=== PATIENT | male | born 1980 | race Two or more races ===

== ENCOUNTER → 2022-03-11 09:25 | Outpatient (REF) | payer OTHER, SELFPAY | LOC: HO.SL 09:25 | PROVIDERS: PCP Internal Medicine; Visit Provider Internal Medicine | DX: R40.0 Somnolence (principal); R06.81 Apnea, not elsewhere classified; E66.9 Obesity, unspecified | CPT/HCPCS: 95806 ==

== ENCOUNTER 2022-07-02 09:01 | Outpatient (REF) | payer OTHER, SELFPAY ==
[2022-07-02 09:10] LABS: MANUAL DIFF FLAG NO
[2022-07-02 09:33] LABS: Basophils Percent Auto 0.3 % (0-2); Eosinophils Absolute Auto 0.2 X10*3/uL (0.0-0.4); Eosinophils Percent Auto 2.3 % (0-4); Hemoglobin 14.4 g/dl (14.0-18.0); Imm Gran Abs Auto 0.03 X10*3/uL (0.00-0.03); Imm Gran Pct Auto 0.4 % (0.0-0.4); Lymphocytes Absolute Auto 2.1 X10*3/uL (1.2-4.9); Lymphocytes Percent Auto 28.8 % (20-40); Mean Corpuscular HGB Conc 32.7 g/dl (31.0-36.0); Mean Corpuscular Hemoglobin 26.4 pg (27.0-33.0); Mean Corpuscular Volume 80.7 fL (80.0-98.0); Mean Platelet Volume 8.6 fL (9.4-12.4); Monocytes Absolute Auto 0.3 X10*3/uL (0.1-1.2); Monocytes Percent Auto 3.6 % (2-11); Neutrophils Absolute Auto 4.7 x10*3/uL (2.0-8.3); Neutrophils Percent Auto 64.6 % (45-73); Platelet Count 317 X10*3/uL (160-400); Red Blood Count 5.45 X10*6/uL (4.60-5.80); Red Cell Distribution Width 14.6 % (11.0-16.0); White Blood Count 7.3 X10*3/uL (4.8-10.8)
[2022-07-02 09:56] LABS: Alanine Aminotransferase 35 U/L (0-40); Albumin Level 4.1 g/dL (3.5-5.0); Alkaline Phosphatase 91 U/L (39-117); Anion Gap 12 (12-20); Aspartate Amino Transferase 30 U/L (5-37); Bilirubin Total 0.4 mg/dL (0.0-1.0); Blood Urea Nitrogen 15 mg/dL (9-16); Carbon Dioxide 31 mmol/L (22-29); Chloride 103 mmol/L (96-108); Cholesterol 205 mg/dL; Estimated Glomerular Filt Rate > 60; Glucose Fasting 111 mg/dL (60-99); HDL Cholesterol 32 mg/dL; LDL Cholesterol Calculated 135 mg/dl; Sodium 142 mmol/L (135-145); Total Protein 7.4 g/dL (6.5-8.0); Triglycerides 190 mg/dL
[2022-07-02 10:20] LABS: Thyroid Stimulating Hormone 2.27 uIU/mL (0.32-4.0); Vitamin D 25-OH Total 25.8 ng/mL (>30)
== END 2022-07-02 09:02 | disposition home or self-care (01) ==
LOC: HO.LAB 09:01
PROVIDERS: PCP Internal Medicine; Visit Provider Internal Medicine
DX: E66.9 Obesity, unspecified (principal); E55.9 Vitamin D deficiency, unspecified; I10 Essential (primary) hypertension
CPT/HCPCS: 36415; 80053; 80061; 82306; 84443; 85025

== ENCOUNTER 2022-09-23 17:36 | Emergency (ER) | payer OTHER, SELFPAY ==
--- NOTE | ~2022-09-23 | XR_ITS ---
EXAMINATION: XR CHEST CLINICAL INFORMATION: Cough COMPARISON: None TECHNIQUE: 2 views of the chest were obtained. FINDINGS: The lungs are clear. No airspace consolidation, pleural effusion, or pneumothorax. The cardiomediastinal silhouette is within normal limits. No acute osseous injury. XR/XR chest 2V IMPRESSION: No acute pulmonary process.
[2022-09-23 19:11] VITALS: BP 173/80; PULSE 100; RESP 16; TEMP 37.1; O2SAT 98; BMI 35.4
--- NOTE | 2022-09-23 19:13 | ED.URI ---
HPI - URI/Sore Throat General Chief Complaint: Upper Respiratory Symptoms <Aamir Blair MD - Last Filed: 09/23/22 19:14> Stated Complaint: Cough, chest pressure, sore throat <Aamir Blair MD - Last Filed: 09/23/22 19:14> Time Seen by Provider: 09/23/22 19:27 <Aamir Blair MD - Last Filed: 09/23/22 19:14> Source: patient <ANSON Ugarte - Last Filed: 09/23/22 21:11> Mode of arrival: ambulatory <ANSON Ugarte - Last Filed: 09/23/22 21:11> Limitations: no limitations <ANSON Ugarte Last Filed: 09/23/22 21:11> History of Present Illness HPI Narrative: 42 yold male with pmh of childhood asthma, HTN, obstructive sleep apnea presents to the ED for dry cough for the past 3 weeks. patient also states is sore throat. patient denies any shortness of breath, leg swelling, calf pain, pressure chest pain, weakness, dizziness, or coughing up blood. <ANSON Ugarte - Last Filed: 09/23/22 21:11> MD elicited complaint: cough and sore throat <ANSON Ugarte Last Filed: 09/23/22 21:11> Related Data Home Medications: Home Medications Medication Instructions Recorded Confirmed multivitamin 1 tab PO DAILY 01/28/22 07/02/22 Previous Rx's Medication Instructions Recorded CPAP (CPAP Machine/Device) #1 ea 04/07/22 enalapril maleate 5 mg tablet 5 mg PO BID 90 days #180 tabs 06/17/22 cholecalciferol (vitamin D3) 50 50 mcg PO DAILY 90 days #90 caps 07/02/22 mcg (2,000 unit) capsule albuterol sulfate 90 mcg/actuation 2 puff inhalation Q4-6H PRN 09/23/22 aerosol inhaler shortness of breath or wheezing #8.5 grams benzonatate 100 mg capsule 100 mg PO TID PRN cough 5 days #15 09/23/22 caps <Aamir Blair MD - Last Filed: 09/23/22 19:14> Allergies/Adverse Reactions: Allergies Allergy/AdvReac Type Severity Reaction Status Date / Time No Known Drug Allergies Allergy Unknown Unknown Verified 09/23/22 19:13 <Aamir Blair MD - Last Filed: 09/23/22 19:14> Review of Systems Review of Systems: Cough and sore throat <ANSON Ugarte - Last Filed: 09/23/22 21:11> Yes all other systems are reviewed and are negative <ANSON Ugarte - Last Filed: 09/23/22 21:11> [facility] Past Medical History Medical History: Medical History (Updated 09/23/22 @ 20:53 by ANSON Ugarte) Benign essential hypertension Impaired fasting glucose Obesity (BMI 30-39.9) Pure hypercholesterolemia Vitamin D deficiency <Aamir Blair MD - Last Filed: 09/23/22 19:14> Surgical History: Surgical History No pertinent past surgical history <Aamir Blair MD - Last Filed: 09/23/22 19:14> Family History Family History: Family History Mother High blood pressure Father No problems noted. 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 Cognitive needs: No Hearing needs: No Vision needs: Yes <Aamir Blair MD - Last Filed: 09/23/22 19:14> Physical Exam Vital Signs: Vital Signs: Last Vital Signs Temp 98.8 F 09/23/22 19:11 Pulse 100 09/23/22 19:11 Resp 16 09/23/22 19:11 BP 173/80 H 09/23/22 19:11 Pulse Ox 98 09/23/22 19:11 O2 Del Method 09/23/22 19:11 BMI result Body Mass Index 35.4 <Aamir Blair MD - Last Filed: 09/23/22 19:14> Vital Signs: Last Vital Signs Temp 98.8 F 09/23/22 19:11 Pulse 100 09/23/22 19:11 Resp 16 09/23/22 19:11 BP 173/80 H 09/23/22 19:11 Pulse Ox 98 09/23/22 19:11 O2 Del Method 09/23/22 19:11 BMI result Body Mass Index 35.4 <ANSON Ugarte - Last Filed: 09/23/22 21:11> Const: General: cooperative, healthy appearing, comfortable, no acute distress, well developed, alert, awake and Physically active <ANSON Ugarte Last Filed: 09/23/22 21:11> Orientation/consciousness: oriented to person, oriented to place, oriented to time and patient oriented x3 <ANSON Ugarte - Last Filed: 09/23/22 21:11> HEENT: Head: Yes normal to inspection, Yes No palpable skull fracture present, Yes normocephalic, Yes atraumatic and No abrasion <ANSON Ugarte Last Filed: 09/23/22 21:11> Eyes: General: appearance normal, both eyes and all related structures <ANSON Ugarte Last Filed: 09/23/22 21:11> Neck: Neck: Yes normal visual inspection, Yes full ROM, Yes no lymphadenopathy, Yes no meningeal signs, Yes trachea midline, Yes supple, No anterior neck swelling and No tender <ANSON Ugarte Last Filed: 09/23/22 21:11> Chest: Chest palpation & inspection: normal inspection of the chest and normal palpation of entire chest wall <ANSON Ugarte Last Filed: 09/23/22 21:11> Resp: Effort & Inspection: normal respiratory effort and able to speak in complete sentences <ANSON Ugarte Last Filed: 09/23/22 21:11> Auscultation: clear to auscultation bilaterally <ANSON Ugarte Last Filed: 09/23/22 21:11> Cardio: Jugular venous distension: no JVD <ANSON Ugarte Last Filed: 09/23/22 21:11> Heart sounds: S1 normal heart sound present and S2 normal heart sound present <ANSON Ugarte Last Filed: 09/23/22 21:11> GI: Inspection: Yes normal to inspection and No abdominal wall ecchymosis <ANSON Ugarte Last Filed: 09/23/22 21:11> Palpation (GI): Soft to palpation, not firm, nontender, no guarding and not rigid <ANSON Ugarte - Last Filed: 09/23/22 21:11> : General: No CVA tenderness and Yes no CVA tenderness <ANSON Ugarte Last Filed: 09/23/22 21:11> Back/Spine/Pelvis: Back: no CVA tenderness, No CVA tenderness and No back tenderness <ANSON Ugarte - Last Filed: 09/23/22 21:11> Skin: General skin exam: no rashes or lesions noted and elasticity normal <ANSON Ugarte Last Filed: 09/23/22 21:11> Neuro: General: oriented to person, oriented to place, oriented to time, patient oriented x3, gait normal, tone normal, no meningeal signs and CN's II-XI intact bilaterally <ANSON Ugarte Last Filed: 09/23/22 21:11> Extrem: General: Yes normal to inspection and Yes full ROM <ANSON Ugarte Last Filed: 09/23/22 21:11> Psych: Appearance: grossly normal, well kempt and not disheveled <ANSON Ugarte Last Filed: 09/23/22 21:11> Course Course Course Narrative: CHest xray and SARS and strep was ordered in triage. patient is well-appearing <ANSON Ugarte Last Filed: 09/23/22 21:11> Reevaluation(s) Reevaluation #1: 42-year-old male came in for evaluation of sore throat, coughing for the past 2 weeks on and off nonproductive cough, also has been sick with similar symptoms <Aamir Blair MD - Last Filed: 09/23/22 19:14> Time: 19:13 <Aamir Blair MD - Last Filed: 09/23/22 19:14> Reevaluation #2: Strep, SARS, and chest xray normal <ANSON Ugarte - Last Filed: 09/23/22 21:11> Time: 20:51 <ANSON Ugarte - Last Filed: 09/23/22 21:11> MDM - URI/Sore Throat MDM Narrative Medical decision making narrative: Bronchitis <ANSON Ugarte - Last Filed: 09/23/22 21:11> Lab Data Labs: Lab Results 09/23/22 09/23/22 Range/Units 19:15 19:15 Influenza Type A (PCR) NEGATIVE (Negative) Influenza Type B (PCR) NEGATIVE (Negative) RSV RNA Qual (PCR) NEGATIVE (Negative) SARS-CoV-2 RNA (RT-PCR) NEGATIVE (Negative) S. pyogenes GrpA [place] Negative (Negative) <Aamir Blair MD - Last Filed: 09/23/22 19:14> Lab Results 09/23/22 09/23/22 Range/Units 19:15 19:15 Influenza Type A (PCR) NEGATIVE (Negative) Influenza Type B (PCR) NEGATIVE (Negative) RSV RNA Qual (PCR) NEGATIVE (Negative) SARS-CoV-2 RNA (RT-PCR) NEGATIVE (Negative) S. pyogenes GrpA [place] Negative (Negative) <ANSON Ugarte - Last Filed: 09/23/22 21:11> Discharge Plan Discharge Clinical Impression: Bronchitis <Aamir Blair MD - Last Filed: 09/23/22 19:14> Patient Disposition: Home, Self-Care <Aamir Blair MD - Last Filed: 09/23/22 19:14> Instructions: Acute Bronchitis (ED) <Aamir Blair MD - Last Filed: 09/23/22 19:14> Additional Instructions: Return to the ED immediately for any chest pain, shortness of breath, leg swelling, calf pain, coughing up blood, weakness, dizziness, or any other concerning symptoms. Please follow-up with your primary care provider. The COVID, SARS, strep, and chest x-ray came back normal. <Aamir Blair MD - Last Filed: 09/23/22 19:14> Prescriptions: New albuterol sulfate 90 mcg/actuation HFA aerosol inhaler 2 puff inhalation Q4-6H PRN (Reason: shortness of breath or wheezing) Qty: 8.5 0RF benzonatate 100 mg capsule 100 mg PO TID PRN (Reason: cough) 5 Days Qty: 15 0RF No Action (DME) CPAP Machine/Device Device See Rx Instructions .Route Qty: 1 0RF Rx Instructions: As directed-Pressure settings 6-16CM multivitamin Tablet 1 tab PO DAILY enalapril maleate 5 mg tablet 5 mg PO BID 90 Days Qty: 180 3RF cholecalciferol (vitamin D3) 50 mcg (2,000 unit) capsule 50 mcg PO DAILY 90 Days Qty: 90 3RF <Aamir Blair MD - Last Filed: 09/23/22 19:14> Referrals: Stephane Pretty MD [Primary Care Provider] - (Bronchitis) <Aamir Blair MD - Last Filed: 09/23/22 19:14> Stand Alone Forms: Work/School Release <Aamir Blair MD - Last Filed: 09/23/22 19:14> Interventions: ED Discharge Assessment Last Done: 09/23/22 20:59 <Aamir Blair MD - Last Filed: 09/23/22 19:14> Discharge Date/Time: 09/23/22 21:00 <Aamir Blair MD - Last Filed: 09/23/22 19:14> Print Language: [place] <Aamir Blair MD - Last Filed: 09/23/22 19:14>
[2022-09-23 19:40] LABS: Strep A Nucleic Acid Negative (Negative)
[2022-09-23 19:59] LABS: Influenza A PCR NEGATIVE (Negative); Influenza B PCR NEGATIVE (Negative); Resp Syncy Virus RNA Qual PCR NEGATIVE (Negative); SARS COV2 PCR INHOUSE NEGATIVE (Negative)
== END 2022-09-23 21:00 | disposition home or self-care (01) ==
PROVIDERS: Emergency Medicine; Emergency Provider Internal Medicine; PCP Internal Medicine
DX: J40 Bronchitis, not specified as acute or chronic (principal); Z20.822 Contact with and (suspected) exposure to COVID-19; J02.9 Acute pharyngitis, unspecified; I10 Essential (primary) hypertension; E78.00 Pure hypercholesterolemia, unspecified; Z79.899 Other long term (current) drug therapy
CPT/HCPCS: 0241U; 71046; 87651; 99282; 99283

== ENCOUNTER 2022-11-19 09:27 | Outpatient (REF) | payer OTHER, SELFPAY ==
[2022-11-19 09:43] LABS: MANUAL DIFF FLAG NO
[2022-11-19 10:28] LABS: Appearance Urine Clear; Color Urine Yellow; Glucose Urine UA Negative (Negative); Leukocyte Esterase Urine Negative (Negative); Nitrite Urine Negative (Negative); PH 6.5 (5.0-9.0); UMIC TRIGGER UACC YES; Urine Blood Small (1+) (Negative); Urine Ketones Negative (Negative); Urine Protein Negative (Neg-Trace)
[2022-11-19 10:39] LABS: Bacteria Urine None Seen (None Seen); Hyaline Casts Urine 0-2 /LPF (0-2); Squamous Epithelial Cell Urine 0-2 /HPF (0-2); WBC Urine 0-5 /HPF (0-5)
[2022-11-19 10:57] LABS: Estimated Average Glucose 123 mg/dL; Hemoglobin A1c % 5.9 %
[2022-11-19 11:56] LABS: Alanine Aminotransferase 31 U/L (0-40); Alkaline Phosphatase 94 U/L (39-117); Anion Gap 10 (12-20); Aspartate Amino Transferase 26 U/L (5-37); Bilirubin Total 0.4 mg/dL (0.0-1.0); Blood Urea Nitrogen 14 mg/dL (9-16); Carbon Dioxide 33 mmol/L (22-29); Chloride 103 mmol/L (96-108); Cholesterol 212 mg/dL; Estimated Glomerular Filt Rate > 60; Glucose Fasting 103 mg/dL (60-99); HDL Cholesterol 31 mg/dL; LDL Cholesterol Calculated 147 mg/dl; Potassium 3.8 mmol/L (3.3-5.1); Sodium 142 mmol/L (135-145); TSH reflex Free T4 1.07 uIU/mL (0.32-4.0); Triglycerides 173 mg/dL; Vitamin D 25-OH Total 33.4 ng/mL (>30)
[2022-11-19 12:10] LABS: Basophils Percent Auto 0.3 % (0-2); Eosinophils Absolute Auto 0.2 X10*3/uL (0.0-0.4); Eosinophils Percent Auto 2.4 % (0-4); Hematocrit 42.9 % (42.0-52.0); Hemoglobin 13.8 g/dl (14.0-18.0); Imm Gran Abs Auto 0.02 X10*3/uL (0.00-0.03); Imm Gran Pct Auto 0.3 % (0.0-0.4); Lymphocytes Absolute Auto 1.5 X10*3/uL (1.2-4.9); Mean Corpuscular HGB Conc 32.2 g/dl (31.0-36.0); Mean Corpuscular Hemoglobin 26.2 pg (27.0-33.0); Mean Corpuscular Volume 81.4 fL (80.0-98.0); Mean Platelet Volume 9.3 fL (9.4-12.4); Monocytes Absolute Auto 0.2 X10*3/uL (0.1-1.2); Monocytes Percent Auto 3.4 % (2-11); Neutrophils Absolute Auto 4.8 x10*3/uL (2.0-8.3); Neutrophils Percent Auto 71.6 % (45-73); Platelet Count 315 X10*3/uL (160-400); Red Blood Count 5.27 X10*6/uL (4.60-5.80); White Blood Count 6.7 X10*3/uL (4.8-10.8)
== END 2022-11-19 09:28 | disposition home or self-care (01) ==
LOC: HO.LAB 09:27
PROVIDERS: PCP Internal Medicine; Visit Provider Internal Medicine
DX: E78.00 Pure hypercholesterolemia, unspecified (principal); R73.01 Impaired fasting glucose; I10 Essential (primary) hypertension; E55.9 Vitamin D deficiency, unspecified
CPT/HCPCS: 36415; 80053; 80061; 81001; 82306; 83036; 84443; 85025

== ENCOUNTER 2023-06-19 07:08 | Outpatient (REF) | payer OTHER, SELFPAY ==
[2023-06-19 07:20] LABS: MANUAL DIFF FLAG NO
[2023-06-19 07:36] LABS: Basophils Percent Auto 0.1 % (0-2); Eosinophils Absolute Auto 0.2 X10*3/uL (0.0-0.4); Eosinophils Percent Auto 2.7 % (0-4); Imm Gran Abs Auto 0.02 X10*3/uL (0.00-0.03); Imm Gran Pct Auto 0.3 % (0.0-0.4); Lymphocytes Absolute Auto 1.9 X10*3/uL (1.2-4.9); Lymphocytes Percent Auto 26.9 % (20-40); Mean Corpuscular HGB Conc 31.8 g/dl (31.0-36.0); Mean Corpuscular Hemoglobin 25.6 pg (27.0-33.0); Mean Corpuscular Volume 80.6 fL (80.0-98.0); Mean Platelet Volume 8.8 fL (9.4-12.4); Monocytes Absolute Auto 0.3 X10*3/uL (0.1-1.2); Monocytes Percent Auto 4.2 % (2-11); Neutrophils Absolute Auto 4.7 x10*3/uL (2.0-8.3); Neutrophils Percent Auto 65.8 % (45-73); Platelet Count 281 X10*3/uL (160-400); Red Blood Count 5.46 X10*6/uL (4.60-5.80); Red Cell Distribution Width 14.9 % (11.0-16.0); White Blood Count 7.1 X10*3/uL (4.8-10.8)
[2023-06-19 07:43] LABS: Estimated Average Glucose 111 mg/dL; Hemoglobin A1c % 5.5 %
[2023-06-19 08:00] LABS: Alanine Aminotransferase 31 U/L (0-40); Alkaline Phosphatase 82 U/L (39-117); Anion Gap 10 (12-20); Aspartate Amino Transferase 20 U/L (5-37); Bilirubin Total 0.4 mg/dL (0.0-1.0); Blood Urea Nitrogen 17 mg/dL (9-16); Calcium 9.3 mg/dL (8.4-10.2); Carbon Dioxide 32 mmol/L (22-29); Chloride 106 mmol/L (96-108); Cholesterol 187 mg/dL; Estimated Glomerular Filt Rate > 60; Glucose Fasting 102 mg/dL (60-99); HDL Cholesterol 32 mg/dL; LDL Cholesterol Calculated 127 mg/dl; Potassium 3.7 mmol/L (3.3-5.1); Sodium 144 mmol/L (135-145); Total Protein 7.3 g/dL (6.5-8.0); Triglycerides 142 mg/dL
[2023-06-19 08:18] LABS: TSH reflex Free T4 3.46 uIU/mL (0.32-4.0); Vitamin D 25-OH Total 43.2 ng/mL (>30)
== END 2023-06-19 07:09 | disposition home or self-care (01) ==
LOC: HO.LAB 07:08
PROVIDERS: PCP Internal Medicine; Visit Provider Internal Medicine
DX: E55.9 Vitamin D deficiency, unspecified (principal); I10 Essential (primary) hypertension; E11.9 Type 2 diabetes mellitus without complications; E78.00 Pure hypercholesterolemia, unspecified
CPT/HCPCS: 36415; 80053; 80061; 82306; 83036; 84443; 85025

== ENCOUNTER 2023-06-21 07:15 | Outpatient (REF) | payer OTHER, SELFPAY ==
[2023-06-21 12:59] LABS: Appearance Urine Clear; Color Urine Yellow; Glucose Urine UA Negative (Negative); Leukocyte Esterase Urine Negative (Negative); Nitrite Urine Negative (Negative); PH 6.5 (5.0-9.0); Specific Gravity - Urine 1.015 (1.005-1.025); Urine Blood Negative (Negative); Urine Ketones Negative (Negative); Urine Protein Negative (Neg-Trace)
== END 2023-06-21 07:16 | disposition home or self-care (01) ==
LOC: HO.LAB 07:15
PROVIDERS: PCP Internal Medicine; Visit Provider Internal Medicine
DX: R30.0 Dysuria (principal)
CPT/HCPCS: 81003

== ENCOUNTER 2023-06-21 16:42 | Outpatient (AMB) | payer OTHER, SELFPAY ==
[2023-06-21 16:44] VITALS: BP 128/82; PULSE 78; O2SAT 97; BMI 34.0
--- NOTE | 2023-06-21 16:44 | A.OFFPC_ITS ---
Vital Signs 06/21/23 16:44 Height 5 ft 9 in Weight 230 lb BMI 34.0 BP 128/82 Blood Pressure Location Lt brachial Position Sitting Pulse 78 Pulse Source Pulse Oximeter Pulse Oximetry (%) 97 Oxygen Delivery Method Room Air Intake Visit Reasons: 4m F/U HTN, hyperlipidemia, IFG, CLOVIS [employer] Required: No Accompanied by: Self / Same As Patient Allergies No Known Drug Allergies Allergy (Unknown, Verified 06/21/23 17:35) Unknown Medication List - Last Reconciled 06/21/23 by Stephane Pretty MD cholecalciferol (vitamin D3) 50 mcg PO DAILY 90 days CPAP (CPAP Machine/Device) As directed-Pressure settings 6-16CM enalapril maleate 5 mg PO BID 90 days multivitamin 1 tab PO DAILY Tobacco use date assessed: 06/21/23 Dental Screening Dental Screen Date: 06/21/23 Did you have a dental visit in the last 12 months?: No Did you have a dental problem in the last 6 months where you did not have access to dental care?: No Was dental information given to patient?: No HPI 4m F/U HTN, hyperlipidemia, IFG, CLOVIS HPI Details Patient comes in today for his follow up visit States that he feels okay He denies any headaches or dizziness Denies any chest pains, no SOB He reports that he is still experiencing on and off brief spells of palpitations/sensation of his heart racing States that these would occur about 1 to 2 times a week and each episode would last for about 15 minutes or so Notes that these occur irregardless of activity or exertion and at any time of the day States that other that the sensation in his chest, he denies any other associated symptoms - has no headaches, dizziness, SOB or chest pains when these episodes occur No nausea/vomiting, no abdominal pain No change in bowel habits noted Adds that he finally got his CPAP device a couple of months ago and has been using it daily when sleeping at night since States that he has noticed some improvement in his sleep and a reduction in his daytime fatigue and somnolence but he is not sure at this time if his settings or requirements have changed or not Is not seeing any specialist at this time for his CLOVIS Had his follow up labs done last week - to discuss his results [facility] Medical History Benign essential hypertension Impaired fasting glucose Obesity (BMI 30-39.9) Pure hypercholesterolemia Vitamin D deficiency Surgical History No pertinent past surgical history Family History Mother High blood pressure Father No problems noted. 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 1. Little interest or pleasure in doing things: not at all 2. Feeling down, depressed, or hopeless: not at all 3. Trouble falling or staying asleep, or sleeping too much: not at all 4. Feeling tired or having little energy: not at all 5. Poor appetite or overeating: not at all 6. Feeling bad about yourself - or that you are a failure or have let yourself or your family down: not at all 7. Trouble concentrating on things, such as reading the newspaper or watching television: not at all 8. Moving or speaking so slowly that other people could have noticed. Or the opposite - being so fidgety or restless that you have been moving around a lot more than usual: not at all 9. Thoughts that you would be better off or of hurting yourself in some way: not at all Total score: 0 Depression Screening Interpretation: Negative 01017 - PHQ-9 Billing: Yes Source: Developed by Drs. Matthieu Parnell, Neris Vance, Kenn Hopper and colleagues, with an educational whit from [employer]. Thrive Questionnaire Date Thrive assessed: 06/21/23 I am a: Patient What is your living situation today?: I have a steady place to live Within the past 12 months, did the food you bought not last and you didn't have the money to get more?: Never true Within the past 12 months, did you worry whether your food would run out before you got money to buy more?: Never true Do you have trouble paying for medicines?: No Do you have trouble getting transportation to medical appointments?: No Do you have trouble paying your heating and electricity bill?: No Do you have trouble taking care of your child, family member or friend?: No Do you have trouble with day-to-day activities such as bathing, preparing meals, shopping, managing finances, etc.?: No Are you currently unemployed and looking for a job?: No Are you interested in more education?: No Please select the resources that you would like help with: None Currently or been in a relationship where the following occur: no concerns reported AUDIT C Alcohol Use Questionnaire (AUDIT-C) 1. How often do you have a drink containing alcohol?: Monthly or less 2. How many drinks containing alcohol do you have on a typical day when you are drinking?: 1 or 2 3. How often do you have six or more drinks on one occasion?: Never Total Score: 1 Score Reviewed/Action Taken: Yes STEPH-7 AMB Questionnaire STEPH-7 Date STEPH - 7 assessed: 06/21/23 Feeling nervous, anxious, or on edge: 1 = Several days Not being able to stop or control worryin = Several days Worrying too much about different things: 1 = Several days Trouble relaxin = Several days Being so restless that it is hard to sit still: 1 = Several days Becoming easily annoyed or irritable: 1 = Several days Feeling afraid as if something awful might happen: 1 = Several days Total STEPH-7 score (0-4 normal; 5-9 mild; 10-14 moderate; 15-21 severe): 7 Source: Developed by Drs. Matthieu Parnell, Neris Vance, Kenn Hopper and colleagues, with an educational whit from [employer]. STEPH-7 Assessment Billing STEPH-7 Assessment Tool: STEPH-7 Assessment 04050 Review of Systems Const Denies chills, Denies fatigue, Denies fever(s) and Denies headache(s) ENT Denies dysphagia, Denies dizziness, Denies otalgia, Denies headache(s), Denies neck pain, Denies odynophagia and Denies sore throat Card Denies chest pain, Denies irregular heart rhythm, Reports palpitations (on and off - see HPI) and Denies dyspnea Resp Denies cough and Denies dyspnea GI Denies abdominal pain, Denies constipation, Denies dysphagia, Denies heartburn, Denies diarrhea, Denies nausea, Denies odynophagia and Denies vomiting Denies dysuria, Denies nocturia and Denies urinary frequency Musc Denies neck pain Neuro Denies dizziness and Denies headache(s) Endo Denies fatigue and Reports palpitations (on and off - see HPI) Physical exam (Primary Care) Vital Signs: Last Vital Signs Pulse 78 06/21/23 16:44 BP 128/82 06/21/23 16:44 Pulse Ox 97 06/21/23 16:44 Oxygen Delivery Method Room Air 06/21/23 16:44 BMI result Body Mass Index 34.0 Tobacco/Smoking Status: Tobacco use Status Tobacco use date assessed 06/21/23 06/21/23 16:49 Patient Tobacco Use Status Never used Tobacco 06/21/23 16:49 e-Cigarette/Vaping Use Never Used 06/21/23 16:49 PHQ-9: PHQ-9 Score PHQ-9: Total score 0 06/21/23 17:39 Depression Screening Interpretation: Negative Thrive Assessment: Date of Thrive Assessment Date Thrive assessed 06/21/23 06/21/23 16:49 Currently or been in a relationship where the following occur: no concerns repor maddi Const General: no acute distress and alert HENMT Ears: TM's normal bilaterally and EAC's normal Throat: Yes posterior oropharynx normal and Yes tonsils normal (no TP congestion) Neck Neck: Yes no lymphadenopathy and Yes supple Resp Auscultation: clear to auscultation bilaterally, no rales and no wheezes Cardio Rate: regular rate Rhythm: regular rhythm Heart sounds: no murmurs GI Palpation (GI): Soft to palpation and nontender Auscultation: normal bowel sounds Skin Rashes: no rashes Extrem General: Yes no clubbing, cyanosis or edema Results Reviewed Results Reviewed: Laboratory Tests 06/19/23 06/19/23 06/19/23 07:18 07:18 07:18 WBC 7.1 Hgb 14.0 Hct 44.0 Plt Count 281 Sodium 144 Potassium 3.7 Creatinine 0.89 Estimated GFR > 60 Fasting Glucose 102 H Hemoglobin A1c % 5.5 Calcium 9.3 AST 20 ALT 31 Triglycerides 142 Cholesterol 187 LDL Cholesterol, Calc 127 HDL Cholesterol 32 25-OH Vitamin D Total 43.2 TSH 3.46 Ur Specific [place] Urine Protein Urine Glucose (UA) Urine Blood 06/21/23 07:48 WBC Hgb Hct Plt Count Sodium Potassium Creatinine Estimated GFR Fasting Glucose Hemoglobin A1c % Calcium AST ALT Triglycerides Cholesterol LDL Cholesterol, Calc HDL Cholesterol 25-OH Vitamin D Total TSH Ur Specific [place] 1.015 Urine Protein Negative Urine Glucose (UA) Negative Urine Blood Negative Assessment and Plan Assessment & Plan (1) Benign essential hypertension: Code(s): I10 - Essential (primary) hypertension Plan: Reinforced low sodium diet - goal is systolic BP of 120 mm or less Patient's blood pressure appears to be much better today Continue Enalapril 5 mg BID (2) Pure hypercholesterolemia: Code(s): E78.00 - Pure hypercholesterolemia, unspecified Plan: Results of his labs done last week reviewed and discussed with patient - advised that his cholesterol levels have now improved slightly from previous Reinforced low cholesterol diet; patient would like to continue working on his diet for now and hold off on starting cholesterol Rx Will recheck his labs and fasting lipids in 4 months for follow up (3) Palpitations: Code(s): R00.2 - Palpitations Plan: Patient was sent for an EKG previously for further evaluation but he was not able to get it done; will reorder EKG again As he continues to experience recurrent symptoms of palpitations, will send him as well for a 7-day Holter monitor and echocardiogram for further evaluation (4) Vitamin D deficiency: Code(s): E55.9 - Vitamin D deficiency, unspecified Plan: Continue Vitamin D3 2000 units QD (5) Impaired fasting glucose: Code(s): R73.01 - Impaired fasting glucose Plan: HgbA1c has improved to 5.5% on his labs done last week; was at 5.9% a few months ago Reinforced low calorie diet/exercise as tolerated (6) CLOVIS (obstructive sleep apnea): Code(s): G47.33 - Obstructive sleep apnea (adult) (pediatric) Plan: Home sleep study done last year revealed (+)significant sleep apnea He received his CPAP device and started using it regularly a couple of months ago - relates (+) improvement in his fatigue and daytime somnolence Is currently not seeing or following up with Sleep Medicine - will refer him to Sleep Medicine for regular follow up and continuing management (7) Obesity (BMI 30-39.9): Code(s): E66.9 - Obesity, unspecified Plan: Reinforced diet/exercise as tolerated/lose weight - has been able to lose about 10 pounds since his last visit Plan Follow up in 4 months Orders: Orders CA echo transthoracic complete Today R00.2 - Palpitations ECG 7 day holter monitor Today R00.2 - Palpitations ECG 12 lead EKG Today R00.2 - Palpitations Comprehensive [place]. Panel Fast 4 Months E78.00 - Pure hypercholesterolemia, unspecified Lipid Panel 4 Months E78.00 - Pure hypercholesterolemia, unspecified Referrals Sleep Medicine Referral G47.33 - Obstructive sleep apnea (adult) (pediatric) Coding Level of Care Code Est Pt Level 4 (62277) Diagnoses Benign essential hypertension I10 Pure hypercholesterolemia E78.00 Palpitations R00.2 Vitamin D deficiency E55.9 Impaired fasting glucose R73.01 CLOVIS (obstructive sleep apnea) G47.33 Obesity (BMI 30-39.9) E66.9 Additional Codes STEPH-7 Assessment Billing - STEPH-7 Assessment Tool: STEPH-7 Assessment 52553 ([id number])
== END 2023-06-21 17:42 | disposition home or self-care (01) ==
PROVIDERS: PCP Internal Medicine; Visit Provider Internal Medicine
DX: I10 Essential (primary) hypertension (principal); E55.9 Vitamin D deficiency, unspecified; Z68.34 Body mass index [BMI] 34.0-34.9, adult; E66.9 Obesity, unspecified; E78.00 Pure hypercholesterolemia, unspecified; R00.2 Palpitations; R73.01 Impaired fasting glucose; G47.33 Obstructive sleep apnea (adult) (pediatric)
CPT/HCPCS: 99214

== ENCOUNTER → 2023-08-31 07:56 | Outpatient (REF) | payer OTHER, SELFPAY ==
--- NOTE | 2023-08-31 08:00 | ECG_ITS ---
Test Reason : palpitations Blood Pressure : / mmHG Vent. Rate : 064 BPM Atrial Rate : 064 BPM P-R Int : 160 ms QRS Dur : 090 ms QT Int : 400 ms P-R-T Axes : 067 -01 016 degrees QTc Int : 412 ms Normal sinus rhythm Normal ECG No previous ECGs available Referred By: Stephane Pretty Electronically Signed By:MAURI BRAVO MD
--- NOTE | 2023-08-31 08:00 | HM_ITS ---
* Total monitoring time 7 days. * Underlying rhythm is sinus. Average ventricular rate 68/Min. Range 44 to 132/Min. * Rare supraventricular and ventricular ectopy. Minimal burden. * No significant pauses or AV blocks. * No patient markers or events in diary. MTDD
--- NOTE | 2023-08-31 08:00 | CA_ITS ---
Transthoracic Echocardiogram Patient (Last, First, Middle): Jesse Galan J Gender: Male Date of : 1980 Age: 43 Procedure Date: 08/31/2023 Procedure Type: Transthoracic Echocardiogram Location: OP Height: 175.26 cm Weight: 104.33 kg BSA: 2.19 m2 Heart Rate: 60 bpm BP: 128 / 82 mmHg Forensic Anthropologist: NIRMAL Referring MD: Stephane Pretty MD Nail Making Machine Tender: Winston Díaz MD Symptoms: R00.2 - Palpitations Study Quality: Adequate ECG Rhythm: Sinus Conclusions: - Normal study Findings Left Ventricle Normal left ventricular size, thickness, and systolic function. The visually estimated ejection fraction is between 60-65%. Spectral Doppler is indicative of a normal filling pattern. Peak GLS is -19.7%, within normal limits Right Ventricle Normal right ventricular cavity size and systolic function. Atria Both atria are normal in size. Interatrial shunt cannot be excluded. Aortic Valve Normal aortic valve structure and function. There is no aortic valve stenosis. There is no aortic valve regurgitation. Mitral Valve Normal mitral valve structure and function. There is trace mitral valve regurgitation. There is no mitral valve stenosis. Pulmonic Valve The pulmonic valve is likely normal. Tricuspid Valve Normal tricuspid valve structure. There is trace tricuspid valve regurgitation. The right ventricular systolic pressure is normal. The right ventricular systolic pressure is 26 mmHg. Normal right atrial pressure. There is no evidence of pulmonary hypertension. Great Vessels All visible segments of the aorta are normal in size. The pulmonary artery was not well visualized. Venous The inferior vena cava is normal in size and collapses greater than 50% with inspiration. Pericardium/Pleural There is no evidence of pericardial effusion. Prior Study Comparison No prior study available for comparison. Measurements 2D Linear Measurements IVSd: 1.00 0.6-0.9/0.6-1.0 cm LVIDd: 4.30 3.9-5.3/4.2-5.9 cm LVIDd Index: 1.96 2.4-3.2/2.2-3.1 cm/m2 LVIDs: 2.60 2.0-3.6 cm LVPWd: 0.80 0.7-1.1 cm LA Diam: 4.00 2.7-3.8/3.0-4.0 cm LAIDs Index: 1.83 1.5-2.3 cm/m2 LV Mass: 153.37 67-162/88-224 g LV Mass Index: 70.03 43-95/49-115 g/m2 LVOT Diam: 1.90 3.0+(-)1.3 cm Mitral Valve MV Pk E: 0.74 MV PK A: 0.48 MV Decel Time: 147.00 E/A: 1.60 E'Lateral: 9.14 E'Medial: 8.92 E/E' Med: 8.30 E/E' Lat: 8.10 PHT: 43.00 MVA PHT: 5.12 Decel Wood: 5.05 Aortic Valve AoV Pk Eduardo: 1.41 AoV Pk Grad: 8.00 LVOT LVOT Pk Eduardo: 1.44 LVOT Mn Eduardo: 0.96 LVOT VTI: 0.30 LVOT Pk Grad: 8.00 LVOT Mn Grad: 5.00 LVOT Diam: 1.90 LVOT Area: 2.84 Diastolic Function MV Pk E: 0.74 MV Pk A: 0.48 E/A: 1.60 E'Medial: 8.92 E/E' Med: 8.30 E' Laterial: 9.14 E/E' Lat: 8.10 Right Ventricle TAPSE (mm): 21.90 TVS' Eduardo: 15.30 Tricuspid Valve TR Pk Eduardo: 2.42 TR Pk Grad: 23.00 RA Press: 3.00 RVSP: 26.00 Great Vessels Aorta Sinus of Valsalva: 3.30 2.0-3.5 cm Ao Asc: 3.30 2.1-3.4 cm Pulmonary Veins Pulm Vein S/D 1.00 Pulmonary Valve PV Pk Eduardo: 1.19 Peak PV Grad: 6.00 DC Pk Eduardo: 1.51 Updated in Other Vendor System with Status of Final Winston Díaz MD electronically signed on 08/31/2023 4:53:07 PM with status of Final
== END ==
LOC: HO.CARD 07:56
PROVIDERS: PCP Internal Medicine; Visit Provider Internal Medicine
DX: R00.2 Palpitations (principal)
CPT/HCPCS: 93005; 93242; 93306; 93356

== ENCOUNTER → 2023-08-31 08:00 | Outpatient (BNV) | payer OTHER, SELFPAY | PROVIDERS: PCP Internal Medicine; Visit Provider Internal Medicine Cardiovascular Disease | DX: R00.2 Palpitations (principal) | CPT/HCPCS: 93306 ==

== ENCOUNTER 2024-01-15 07:44 | Outpatient (REF) | payer OTHER, SELFPAY ==
[2024-01-15 08:55] LABS: Alanine Aminotransferase 35 U/L (0-40); Albumin Level 4.1 g/dL (3.5-5.0); Alkaline Phosphatase 84 U/L (39-117); Anion Gap 10 (12-20); Aspartate Amino Transferase 21 U/L (5-37); Bilirubin Total 0.4 mg/dL (0.0-1.0); Blood Urea Nitrogen 17 mg/dL (9-16); Calcium 9.3 mg/dL (8.4-10.2); Carbon Dioxide 31 mmol/L (22-29); Chloride 107 mmol/L (96-108); Cholesterol 199 mg/dL (<200); Estimated Glomerular Filt Rate > 60; Glucose Fasting 105 mg/dL (60-99); HDL Cholesterol 32 mg/dL (>40); LDL Cholesterol Calculated 139 mg/dL (<100); Potassium 4.1 mmol/L (3.3-5.1); Sodium 144 mmol/L (135-145); Total Protein 7.7 g/dL (6.5-8.0); Triglycerides 142 mg/dL (<150)
== END 2024-01-15 07:45 | disposition home or self-care (01) ==
LOC: HO.LAB 07:44
PROVIDERS: PCP Internal Medicine; Visit Provider Internal Medicine
DX: E78.00 Pure hypercholesterolemia, unspecified (principal)
CPT/HCPCS: 36415; 80053; 80061

== ENCOUNTER 2024-01-17 15:52 | Outpatient (AMB) | payer OTHER, SELFPAY ==
[2024-01-17 16:03] VITALS: BP 128/82; PULSE 72; O2SAT 98; BMI 34.1
--- NOTE | 2024-01-17 16:03 | MHC.PC.OV ---
Vital Signs 01/17/24 16:03 Height 5 ft 9 in Weight 231 lb BMI 34.1 BP 128/82 Blood Pressure Location Lt brachial Position Sitting Pulse 72 Pulse Source Pulse Oximeter Pulse Oximetry (%) 98 Oxygen Delivery Method Room Air Intake Visit Reasons: 4M FU, rescheduled from 10/27/23 Partner Marketing Manager Required: No Manager Creative: Not Required per policy Accompanied by: Self / Same As Patient Allergies No Known Drug Allergies Allergy (Unknown, Verified 01/17/24 16:44) Unknown Medication List - Last Reconciled 01/17/24 by Stephane Pretty MD cholecalciferol (vitamin D3) 50 mcg PO DAILY 90 days CPAP (CPAP Machine/Device) As directed-Pressure settings 6-16CM enalapril maleate 5 mg PO BID 90 days multivitamin 1 tab PO DAILY Tobacco use date assessed: 01/17/24 Dental Screening Dental Screen Date: 01/17/24 Did you have a dental visit in the last 12 months?: No Did you have a dental problem in the last 6 months where you did not have access to dental care?: No Was dental information given to patient?: Patient has dentist HPI 4M FU, rescheduled from 10/27/23 HPI Details Patient comes in today for his follow up visit States that he feels okay He denies any headaches or dizziness Denies any chest pains, no SOB No nausea/vomiting, no abdominal pain No change in bowel habits noted Had his follow up labs done a couple of days ago - to discuss his results [facility], [facility] Medical History Impaired fasting glucose Vitamin D deficiency Pure hypercholesterolemia Obesity (BMI 30-39.9) Benign essential hypertension Surgical History No pertinent past surgical history Family History Mother High blood pressure Father No problems noted. 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 1. Little interest or pleasure in doing things: not at all 2. Feeling down, depressed, or hopeless: not at all 3. Trouble falling or staying asleep, or sleeping too much: not at all 4. Feeling tired or having little energy: not at all 5. Poor appetite or overeating: not at all 6. Feeling bad about yourself - or that you are a failure or have let yourself or your family down: not at all 7. Trouble concentrating on things, such as reading the newspaper or watching television: not at all 8. Moving or speaking so slowly that other people could have noticed. Or the opposite - being so fidgety or restless that you have been moving around a lot more than usual: not at all 9. Thoughts that you would be better off or of hurting yourself in some way: not at all Total score: 0 Depression Screening Interpretation: Negative Depression Screening Done: Yes 73084 - PHQ-9 Billing: Yes Source: Developed by Drs. Matthieu Parnell, Neris Vance, Kenn Hopper and colleagues, with an educational whit from [employer]. Thrive Questionnaire Date Thrive assessed: 01/17/24 I am a: Patient What is your living situation today?: I have a steady place to live Within the past 12 months, did the food you bought not last and you didn't have the money to get more?: Never true Within the past 12 months, did you worry whether your food would run out before you got money to buy more?: Never true Do you have trouble paying for medicines?: No Do you have trouble getting transportation to medical appointments?: No Do you have trouble paying your heating and electricity bill?: No Do you have trouble taking care of your child, family member or friend?: No Do you have trouble with day-to-day activities such as bathing, preparing meals, shopping, managing finances, etc.?: No Are you currently unemployed and looking for a job?: No Are you interested in more education?: No Please select the resources that you would like help with: None Currently or been in a relationship where the following occur: no concerns reported THRIVE Score: 0 AUDIT C Alcohol Use Questionnaire (AUDIT-C) 1. How often do you have a drink containing alcohol?: Monthly or less 2. How many drinks containing alcohol do you have on a typical day when you are drinking?: 1 or 2 3. How often do you have six or more drinks on one occasion?: Never Total Score: 1 Score Reviewed/Action Taken: Yes STEPH-7 AMB Questionnaire STEPH-7 Date STEPH - 7 assessed: 01/17/24 Feeling nervous, anxious, or on edge: 1 = Several days Not being able to stop or control worryin = Not at all Worrying too much about different things: 2 = More than half the days Trouble relaxin = Several days Being so restless that it is hard to sit still: 0 = Not at all Becoming easily annoyed or irritable: 2 = More than half the days Feeling afraid as if something awful might happen: 0 = Not at all Total STEPH-7 score (0-4 normal; 5-9 mild; 10-14 moderate; 15-21 severe): 6 Source: Developed by Drs. Matthieu Parnell, Neris Vance, Kenn Hopper and colleagues, with an educational whit from [employer]. Review of Systems Const Denies chills, Denies fatigue, Denies fever(s) and Denies headache(s) ENT Denies dysphagia, Denies dizziness, Denies otalgia, Denies headache(s), Denies neck pain, Denies odynophagia and Denies sore throat Card Denies chest pain, Denies irregular heart rhythm, Reports palpitations (on and off) and Denies dyspnea Resp Denies cough and Denies dyspnea GI Denies abdominal pain, Denies constipation, Denies dysphagia, Denies heartburn, Denies diarrhea, Denies nausea, Denies odynophagia and Denies vomiting Denies dysuria, Denies nocturia and Denies urinary frequency Musc Denies neck pain Skin/Breast Denies rash Neuro Denies dizziness and Denies headache(s) Endo Denies fatigue and Reports palpitations (on and off) Physical exam (Primary Care) Vital Signs: Last Vital Signs Pulse 72 01/17/24 16:03 BP 128/82 01/17/24 16:03 Pulse Ox 98 01/17/24 16:03 Oxygen Delivery Method Room Air 01/17/24 16:03 BMI result Body Mass Index 34.1 Tobacco/Smoking Status: Tobacco use Status Tobacco use date assessed 01/17/24 01/17/24 16:05 Patient Tobacco Use Status Never used Tobacco 01/17/24 16:05 e-Cigarette/Vaping Use Never Used 01/17/24 16:05 PHQ-9: PHQ-9 Score PHQ-9: Total score 0 01/17/24 16:48 Depression Screening Interpretation: Negative Thrive Assessment: Date of Thrive Assessment Date Thrive assessed 01/17/24 01/17/24 16:05 Currently or been in a relationship where the following occur: no concerns reported Const General: no acute distress and alert HENMT Ears: TM's normal bilaterally and EAC's normal Throat: Yes posterior oropharynx normal and Yes tonsils normal (no TP congestion) Neck Neck: Yes no lymphadenopathy and Yes supple Resp Auscultation: clear to auscultation bilaterally, no rales and no wheezes Cardio Rate: regular rate Rhythm: regular rhythm Heart sounds: no murmurs GI Palpation (GI): Soft to palpation and nontender Auscultation: normal bowel sounds Skin Rashes: no rashes Extrem General: Yes no clubbing, cyanosis or edema Results Reviewed Results Reviewed: Laboratory Tests 01/15/24 07:56 Sodium 144 Potassium 4.1 Creatinine 0.85 Estimated GFR > 60 Calcium 9.3 AST 21 ALT 35 Triglycerides 142 Cholesterol 199 LDL Cholesterol, Calc 139 H HDL Cholesterol 32 L Assessment and Plan Assessment & Plan (1) Benign essential hypertension: Code(s): I10 - Essential (primary) hypertension Plan: Reinforced low sodium diet - goal is systolic BP of 120 mm or less Patient's blood pressure appears well-controlled currently Continue Enalapril 5 mg BID (2) Pure hypercholesterolemia: Code(s): E78.00 - Pure hypercholesterolemia, unspecified Plan: Results of his labs done a couple of days ago reviewed and discussed with patient - he is cautioned that his cholesterol level has increased slightly from previous Reinforced low cholesterol diet; patient still would like to continue working on his diet for now and hold off on starting cholesterol Rx Will recheck his labs and fasting lipids in 4 months for follow up (3) Palpitations: Code(s): R00.2 - Palpitations Plan: EKG done back in August 2023 came out normal - NSR with no acute ST-T wave changes Echocardiogram done in August 2023 also came out completely normal Holter monitor (7-days) done revealed sinus rhythm as the underlying rhythm, with average ventricular rate of 68 bpm and ranging from 44 to 132 bpm. There is rare supraventricular ectopy noted with minimal burden and with no significant pauses or AV blocks Patient states that he has been feeling well and has been mostly asymptomatic with almost no recurrence of his symptoms (palpitations) since his last visit No other interventions or Rx is indicated or recommended at this time (4) Vitamin D deficiency: Code(s): E55.9 - Vitamin D deficiency, unspecified Plan: Continue Vitamin D3 2000 units QD (5) Impaired fasting glucose: Code(s): R73.01 - Impaired fasting glucose Plan: FBS was still slightly elevated on his labs done a couple of days ago at 105 mg/dl but his HgbA1c was normal at 5.5% when last checked a few months ago Reinforced low calorie diet/exercise as tolerated (6) CLOVIS (obstructive sleep apnea): Code(s): G47.33 - Obstructive sleep apnea (adult) (pediatric) Plan: Home sleep study done last year revealed (+)significant sleep apnea He received his CPAP device and has been using it regularly for a while now - notes (+) improvement in his fatigue and daytime somnolence with Tx Follow up with Sleep Medicine as scheduled (7) Obesity (BMI 30-39.9): Code(s): E66.9 - Obesity, unspecified Plan: Reinforced diet/exercise as tolerated/lose weight Plan To return in 6 months for his next annual physical examination Orders: Orders Complete Blood Count Auto Diff 6 Months D64.9 - Anemia, unspecified, Z00.00 - Encounter for general adult medical examination without abnormal findings, R73.01 - Impaired fasting glucose TSH reflex Free T4 6 Months E78.00 - Pure hypercholesterolemia, unspecified, Z00.00 - Encounter for general adult medical examination without abnormal findings, R73.01 - Impaired fasting glucose Vitamin D 25-OH Total 6 Months E55.9 - Vitamin D deficiency, unspecified, Z00.00 - Encounter for general adult medical examination without abnormal findings, R73.01 - Impaired fasting glucose Hemoglobin A1c 6 Months Z00.00 - Encounter for general adult medical examination without abnormal findings, R73.01 - Impaired fasting glucose Comprehensive [place]. Panel Fast 6 Months E78.00 - Pure hypercholesterolemia, unspecified, Z00.00 - Encounter for general adult medical examination without abnormal findings, R73.01 - Impaired fasting glucose Lipid Panel 6 Months E78.00 - Pure hypercholesterolemia, unspecified, Z00.00 - Encounter for general adult medical examination without abnormal findings, R73.01 - Impaired fasting glucose UA CC w/rflx Micro + Cult 6 Months R30.0 - Dysuria, Z00.00 - Encounter for general adult medical examination without abnormal findings, R73.01 - Impaired fasting glucose Prostate Specific Antigen Scr 6 Months Z00.00 - Encounter for general adult medical examination without abnormal findings, R73.01 - Impaired fasting glucose Coding Level of Care Code Est Pt Level 4 (95044) Diagnoses Benign essential hypertension I10 Pure hypercholesterolemia E78.00 Palpitations R00.2 Vitamin D deficiency E55.9 Impaired fasting glucose R73.01 CLOVIS (obstructive sleep apnea) G47.33 Obesity (BMI 30-39.9) E66.9
== END 2024-01-17 16:59 | disposition home or self-care (01) ==
PROVIDERS: PCP Internal Medicine; Visit Provider Internal Medicine
DX: I10 Essential (primary) hypertension (principal); E78.00 Pure hypercholesterolemia, unspecified; E66.9 Obesity, unspecified; Z68.34 Body mass index [BMI] 34.0-34.9, adult; R00.2 Palpitations; E55.9 Vitamin D deficiency, unspecified; R73.01 Impaired fasting glucose; G47.33 Obstructive sleep apnea (adult) (pediatric)
CPT/HCPCS: 99214

== ENCOUNTER 2024-05-30 13:08 | Outpatient (AMB) | payer OTHER, SELFPAY ==
[2024-05-30 13:27] VITALS: BP 142/90; PULSE 78; O2SAT 97; BMI 34.0
--- NOTE | 2024-05-30 13:27 | A.OFFPC_ITS ---
Vital Signs 05/30/24 13:27 Height 5 ft 9 in Weight 230 lb 0.8 oz BMI 34.0 BP 142/90 H Blood Pressure Location Lt brachial Position Sitting Pulse 78 Pulse Source Pulse Oximeter Pulse Oximetry (%) 97 Oxygen Delivery Method Room Air Intake Visit Reasons: Elevated BP, Headaches Intake Note: pt c/o elevated BP, headaches, palpitations [id number] Interactive Multimedia Designer Required: No Allergies No Known Drug Allergies Allergy (Unknown, Verified 05/30/24 13:57) Unknown Medication List - Last Reconciled 05/30/24 by Stephane Pretty MD cholecalciferol (vitamin D3) 50 mcg PO DAILY 90 days CPAP (CPAP Machine/Device) As directed-Pressure settings 6-16CM enalapril maleate 5 mg PO BID 90 days multivitamin 1 tab PO DAILY Tobacco use date assessed: 01/17/24 Dental Screening Dental Screen Date: 01/17/24 HPI Elevated BP, Headaches HPI Details Patient comes in today for further evaluation States that for the past month or so, he has noticed that his blood pressure has been running erratically and are high often, with some of his BP readings at 144/94, 122/94 and 126/93 Also notes that he sometimes has a light headache and feels like his heart is beating differently on and off lately - not sure if this is due to irregular heart beats or not as he does not know how to tell them apart He admits to feeling more stressed out lately - changed jobs a couple of months ago He denies any chest pains, no SOB No nausea/vomiting, no abdominal pain No change in bowel habits noted He's had cardiac work ups done recently back in August 2023 - EKG, echocardiogram and extended Holter monitor all came back normal Holter monitor revealed rare supraventricular and ventricular ectopy with minimal burden; underlying rhythm is otherwise sinus, with average ventricular rate at 68 bpm [facility] Medical History Impaired fasting glucose Vitamin D deficiency Pure hypercholesterolemia Obesity (BMI 30-39.9) Benign essential hypertension Surgical History No pertinent past surgical history Family History Mother High blood pressure Father No problems noted. 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 How often do you have a drink containing alcohol?: Monthly or less 2. How many drinks containing alcohol do you have on a typical day when you are drinking?: 1 or 2 3. How often do you have six or more drinks on one occasion?: Never Total Score: 1 Score Reviewed/Action Taken: Yes STEPH-7 AMB Questionnaire STEPH-7 Date STEPH - 7 assessed: 01/17/24 Source: Developed by Drs. Matthieu Parnell, Neris Vance, Kenn Hopper and colleagues, with an educational whit from [employer]. Review of Systems Const Denies chills, Denies fatigue, Denies fever(s) and Reports headache(s) (mild, on and off) ENT Denies dysphagia, Denies dizziness, Denies otalgia, Reports headache(s) (mild, on and off), Denies neck pain, Denies odynophagia and Denies sore throat Card Denies chest pain, Denies irregular heart rhythm, Reports palpitations (on and off) and Denies dyspnea Resp Denies cough and Denies dyspnea GI Denies abdominal pain, Denies constipation, Denies dysphagia, Denies heartburn, Denies diarrhea, Denies nausea, Denies odynophagia and Denies vomiting Denies dysuria, Denies nocturia and Denies urinary frequency Musc Denies neck pain Skin/Breast Denies rash Neuro Denies dizziness and Reports headache(s) (mild, on and off) Endo Denies fatigue and Reports palpitations (on and off) Physical exam (Primary Care) Vital Signs: Last Vital Signs Pulse 78 05/30/24 13:27 BP 142/90 H 05/30/24 13:27 Pulse Ox 97 05/30/24 13:27 Oxygen Delivery Method Room Air 05/30/24 13:27 BMI result Body Mass Index 34.0 Tobacco/Smoking Status: Tobacco use Status Tobacco use date assessed 01/17/24 05/30/24 13:35 Patient Tobacco Use Status Never used Tobacco 05/30/24 13:35 e-Cigarette/Vaping Use Never Used 05/30/24 13:35 Thrive Assessment: Date of Thrive Assessment Date Thrive assessed 01/17/24 05/30/24 13:35 Const General: no acute distress and alert HENMT Throat: Yes posterior oropharynx normal and Yes tonsils normal (no TP congestion) Neck Neck: Yes no lymphadenopathy and Yes supple Thyroid: Thyroid normal Resp Auscultation: clear to auscultation bilaterally, no rales and no wheezes Cardio Rate: regular rate Rhythm: regular rhythm Heart sounds: no murmurs GI Palpation (GI): Soft to palpation and nontender Auscultation: normal bowel sounds Extrem General: Yes no clubbing, cyanosis or edema Assessment and Plan Assessment & Plan (1) Benign essential hypertension: Code(s): I10 - Essential (primary) hypertension Plan: Reinforced low sodium diet - goal is systolic BP of 120 mm or less As his blood pressure has been running higher than usual lately and appears more erratic, will try increasing his Enalapril to 10 mg BID Patient is advised to continue monitoring his blood pressure regularly (2) Palpitations: Code(s): R00.2 - Palpitations Plan: EKG and echocardiogram done back in August 2023 both came out completely normal - His extended Holter monitor back then revealed sinus rhythm as the underlying rhythm, with average ventricular rate of 68 bpm. There was rare supraventricular ectopy noted but with minimal burden Advised that these sensations may be triggered by his elevated BP readings lately and may resolve once his BP is again better controlled (3) Anxiety: Code(s): F41.9 - Anxiety disorder, unspecified Plan: Will start him on Mirtazapine 7.5 mg Q HS He is advised that this may also help him sleep better at night Plan To return as scheduled in July 2024 for his annual physical examination Medications: New mirtazapine 7.5 mg PO BEDTIME 30 days 30 tabs 2RF Changed From enalapril maleate 5 mg PO BID 90 days 180 tabs 3RF I10 - Essential (primary) hypertension To enalapril maleate 10 mg PO BID 90 days 180 tabs 1RF I10 - Essential (primary) hypertension Coding Level of Care Code Est Pt Level 4 (74221) Diagnoses Benign essential hypertension I10 Palpitations R00.2 Anxiety F41.9
== END 2024-05-30 14:07 | disposition home or self-care (01) ==
PROVIDERS: PCP Internal Medicine; Visit Provider Internal Medicine
DX: I10 Essential (primary) hypertension (principal); R00.2 Palpitations; F41.9 Anxiety disorder, unspecified
CPT/HCPCS: 99214

== ENCOUNTER 2024-10-30 08:31 | Outpatient (REF) | payer OTHER, SELFPAY ==
--- OUTSIDE RECORDS SUMMARY | 2024-10-30 08:34 | XMS_ITS ---
Author Name [facility] Organization Unknown History of Medication Use Medication Directions Dispensed Refills Start Date End Date Stat amoxicillin-clavulan ate (AUGMENTIN) 875-125 MG per tablet Take 1 tablet by mouth 2 (two) times a day. 03/22/2024 active enalapril (VASOTEC) 5 MG tablet 03/22/2024 active Problems Problem Status Onset Date Problem Type Date of Resoluti on Source Dog bite of right lower leg, initial encounter active EncounterDiagnosisAct [facility] Immunizations Vaccine Date Source Lot Number Status Tdap 03/20/2024 [facility] [id number] completed
[2024-10-30 08:53] LABS: MANUAL DIFF FLAG NO
[2024-10-30 09:11] LABS: Basophils Percent Auto 0.3 % (0-2); Eosinophils Absolute Auto 0.2 X10*3/uL (0.0-0.4); Eosinophils Percent Auto 2.3 % (0-4); Hematocrit 45.6 % (42.0-52.0); Hemoglobin 15.4 g/dl (14.0-18.0); Imm Gran Abs Auto 0.03 X10*3/uL (0.00-0.03); Imm Gran Pct Auto 0.4 % (0.0-0.4); Lymphocytes Absolute Auto 1.8 X10*3/uL (1.2-4.9); Lymphocytes Percent Auto 23.2 % (20-40); Mean Corpuscular HGB Conc 33.8 g/dl (31.0-36.0); Mean Corpuscular Hemoglobin 27.3 pg (27.0-33.0); Mean Corpuscular Volume 80.7 fL (80.0-98.0); Mean Platelet Volume 8.6 fL (9.4-12.4); Monocytes Absolute Auto 0.3 X10*3/uL (0.1-1.2); Monocytes Percent Auto 3.9 % (2-11); Neutrophils Absolute Auto 5.6 x10*3/uL (2.0-8.3); Neutrophils Percent Auto 69.9 % (45-73); Platelet Count 267 X10*3/uL (160-400); Red Blood Count 5.65 X10*6/uL (4.60-5.80); Red Cell Distribution Width 14.5 % (11.0-16.0); White Blood Count 7.9 X10*3/uL (4.8-10.8)
[2024-10-30 09:18] LABS: Appearance Urine Clear; Color Urine Yellow; Glucose Urine UA Negative (Negative); Leukocyte Esterase Urine Negative (Negative); Nitrite Urine Negative (Negative); Specific Gravity - Urine 1.025 (1.005-1.025); UMIC TRIGGER UACC YES; Urine Blood Trace (Negative); Urine Ketones Negative (Negative); Urine Protein Negative (Neg-Trace)
[2024-10-30 09:23] LABS: Bacteria Urine None Seen (None Seen); Hyaline Casts Urine 0-2 /LPF (0-2); Squamous Epithelial Cell Urine 0-2 /HPF (0-2); WBC Urine 0-5 /HPF (0-5)
[2024-10-30 09:32] LABS: Estimated Average Glucose 111 mg/dL; Hemoglobin A1C 142.8496 umol/L; Hemoglobin A1c % 5.5 % (<6.0); Total Hemoglobin (HGBA1C) 3919.8012 umol/L
[2024-10-30 10:05] LABS: Alanine Aminotransferase 30 U/L (0-40); Albumin Level 4.1 g/dL (3.5-5.0); Alkaline Phosphatase 84 U/L (39-117); Anion Gap 11 (12-20); Aspartate Amino Transferase 28 U/L (5-37); Bilirubin Total 0.6 mg/dL (0.0-1.0); Blood Urea Nitrogen 17 mg/dL (9-16); Calcium 8.6 mg/dL (8.4-10.2); Carbon Dioxide 31 mmol/L (22-29); Chloride 104 mmol/L (96-108); Cholesterol 202 mg/dL (<200); Estimated Glomerular Filt Rate > 60; Glucose Fasting 94 mg/dL (60-99); HDL Cholesterol 32 mg/dL (>40); LDL Cholesterol Calculated 143 mg/dL (<100); Potassium 3.7 mmol/L (3.3-5.1); Sodium 142 mmol/L (135-145); Total Protein 7.4 g/dL (6.5-8.0); Triglycerides 137 mg/dL (<150)
[2024-10-30 10:20] LABS: Prostate Specific Antigen Scr 0.64 ng/mL (<0.05-4.0)
[2024-10-30 10:23] LABS: TSH reflex Free T4 2.17 uIU/mL (0.32-4.0); Vitamin D 25-OH Total 46.4 ng/mL (>30)
== END 2024-10-30 08:32 | disposition home or self-care (01) ==
LOC: HO.LAB 08:31
PROVIDERS: PCP Internal Medicine; Visit Provider Internal Medicine
DX: Z00.00 Encounter for general adult medical examination without abnormal findings (principal); D64.9 Anemia, unspecified; R73.01 Impaired fasting glucose; E55.9 Vitamin D deficiency, unspecified; E78.00 Pure hypercholesterolemia, unspecified; Z12.5 Encounter for screening for malignant neoplasm of prostate
CPT/HCPCS: 36415; 80053; 80061; 81001; 82306; 83036; 84153; 84443; 85025

== ENCOUNTER 2024-10-31 12:24 | Outpatient (AMB) | payer OTHER, SELFPAY ==
--- NOTE | 2024-10-31 12:51 | MHC.PC.OV ---
Vital Signs 10/31/24 12:52 Height 5 ft 9 in Weight 229 lb 8 oz BMI 33.9 BP 130/60 Blood Pressure Location Lt brachial Position Sitting Pulse 71 Pulse Source Pulse Oximeter Pulse Oximetry (%) 97 Oxygen Delivery Method Room Air Intake Visit Reasons: annual exam Intake Note: Patient is here today for a physical. Technical Healthcare Consultant Required: No Store Deli Manager: Not Required per policy Accompanied by: Self / Same As Patient Allergies No Known Drug Allergies Allergy (Unknown, Verified 10/31/24 13:09) Unknown Medication List - Last Reconciled 10/31/24 by Stephane Pretty MD cholecalciferol (vitamin D3) 50 mcg PO DAILY 90 days CPAP (CPAP Machine/Device) As directed-Pressure settings 6-16CM enalapril maleate 10 mg PO BID 90 days mirtazapine 7.5 mg PO BEDTIME 30 days multivitamin 1 tab PO DAILY Tobacco use date assessed: 10/31/24 Dental Screening Dental Screen Date: 01/17/24 HPI annual exam HPI Details Patient comes in today for his annual physical examination States that he feels okay He denies any headaches or dizziness Denies any chest pains, no shortness of breath No nausea/vomiting, no abdominal pain No change in bowel habits noted He denies any acute urinary symptoms He had his follow-up labs done yesterday - to discuss his results [facility] Medical History (Updated 11/02/24 @ 01:02 by Stephane Pretty MD) Mixed hyperlipidemia Impaired fasting glucose Vitamin D deficiency Pure hypercholesterolemia Obesity (BMI 30-39.9) Benign essential hypertension Surgical History No pertinent past surgical history Family History Mother High blood pressure Father No problems noted. 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 1. Little interest or pleasure in doing things: not at all 2. Feeling down, depressed, or hopeless: not at all 3. Trouble falling or staying asleep, or sleeping too much: not at all 4. Feeling tired or having little energy: not at all 5. Poor appetite or overeating: not at all 6. Feeling bad about yourself - or that you are a failure or have let yourself or your family down: not at all 7. Trouble concentrating on things, such as reading the newspaper or watching television: not at all 8. Moving or speaking so slowly that other people could have noticed. Or the opposite - being so fidgety or restless that you have been moving around a lot more than usual: not at all 9. Thoughts that you would be better off or of hurting yourself in some way: not at all Total score: 0 Depression Screening Interpretation: Negative Depression Screening Done: Yes 98886 - PHQ-9 Billing: Yes Source: Developed by Drs. Matthieu Parnell, Neris Vance, Kenn Hopper and colleagues, with an educational whit from [employer]. Thrive Questionnaire Date Thrive assessed: 10/31/24 I am a: Patient What is your living situation today?: I have a steady place to live Within the past 12 months, did the food you bought not last and you didn't have the money to get more?: Never true Within the past 12 months, did you worry whether your food would run out before you got money to buy more?: Never true Do you have trouble paying for medicines?: No Do you have trouble getting transportation to medical appointments?: No Do you have trouble paying your heating and electricity bill?: No Do you have trouble taking care of your child, family member or friend?: No Do you have trouble with day-to-day activities such as bathing, preparing meals, shopping, managing finances, etc.?: No Are you currently unemployed and looking for a job?: No Are you interested in more education?: No Please select the resources that you would like help with: None Currently or been in a relationship where the following occur: No concerns reported THRIVE Score: 0 AUDIT C Alcohol Use Questionnaire (AUDIT-C) 1. How often do you have a drink containing alcohol?: Monthly or less 2. How many drinks containing alcohol do you have on a typical day when you are drinking?: 1 or 2 3. How often do you have six or more drinks on one occasion?: Never Total Score: 1 Score Reviewed/Action Taken: Yes STEPH-7 AMB Questionnaire STEPH-7 Date STEPH - 7 assessed: 01/17/24 Source: Developed by Drs. Matthieu Parnell, Neris Vance, Kenn Hopper and colleagues, with an educational whit from [employer]. Review of Systems Const Denies chills, Denies fatigue, Denies fever(s), Denies headache(s), Denies malaise and Denies weakness Eyes Denies blurry vision, Denies change in vision, Denies irritation and Denies itchy eyes ENT Denies dysphagia, Denies dizziness, Denies otalgia, Denies headache(s), Denies nasal congestion, Denies neck pain, Denies odynophagia and Denies sore throat Card Denies chest pain, Denies rapid heart rate, Denies irregular heart rhythm, Denies palpitations and Denies dyspnea Resp Denies chest congestion, Denies cough, Denies dyspnea and Denies wheezing GI Denies abdominal pain, Denies bloating, Denies constipation, Denies dysphagia, Denies heartburn, Denies diarrhea, Denies nausea, Denies odynophagia and Denies vomiting Denies hematuria, Denies difficulty urinating, Denies dysuria, Denies urinary frequency and Denies urinary urgency Musc Denies back pain, Denies arthralgias, Denies joint swelling, Denies muscle weakness and Denies neck pain Skin/Breast Denies change in pigmentation, Denies lesions, Denies rash and Denies unusual bruising Neuro Denies dizziness, Denies headache(s), Denies paresthesias and Denies weakness Endo Denies fatigue and Denies palpitations Aller/Immun Denies itchy eyes and Denies wheezing Physical exam (Primary Care) Vital Signs: Last Vital Signs Pulse 71 10/31/24 12:52 BP 130/60 10/31/24 12:52 Pulse Ox 97 10/31/24 12:52 Oxygen Delivery Method Room Air 10/31/24 12:52 BMI result Body Mass Index 33.9 Tobacco/Smoking Status: Tobacco use Status Tobacco use date assessed 10/31/24 10/31/24 12:55 Patient Tobacco Use Status Never used Tobacco 10/31/24 12:55 e-Cigarette/Vaping Use Never Used 10/31/24 12:55 PHQ-9: PHQ-9 Score PHQ-9: Total score 0 11/02/24 01:01 Depression Screening Interpretation: Negative Thrive Assessment: Date of Thrive Assessment Date Thrive assessed 10/31/24 10/31/24 12:55 Currently or been in a relationship where the following occur: No concerns reported Const General: no acute distress, alert and awake Orientation/consciousness: patient oriented x3 HENMT Head: Yes normocephalic and Yes atraumatic Ears: external ears normal, TM's normal bilaterally and EAC's normal General nose exam: No nasal discharge present Face and sinus: Yes normal facial exam and Yes sinuses nontender Teeth and gingiva: dentition normal Throat: Yes posterior oropharynx normal and Yes tonsils normal (no TP congestion) Eyes Eyelids: Yes eyelids normal Conjunctivae: conjunctivae normal Pupils: Equal, round and reactive pupils present EOM: EOMs intact bilaterally Neck Neck: Yes no lymphadenopathy and Yes supple Thyroid: Thyroid normal Resp Auscultation: clear to auscultation bilaterally, no rales and no wheezes Cardio Rate: regular rate Rhythm: regular rhythm Heart sounds: no murmurs GI Palpation (GI): Soft to palpation, nontender and No hepatosplenomegaly present Auscultation: normal bowel sounds General: Yes no CVA tenderness Back/Spine/Pelvis Back: no CVA tenderness Thoracic/Lumbar Spine: thoracic and lumbar spine normal to inspection Skin Lesions: no lesions Rashes: no rashes Neuro General: patient oriented x3, moves all extremities, no focal motor deficits and CN's II-XI intact bilaterally Cranial nerves: Yes Equal, round and reactive pupils present Cognition (Neuro): normal cognition Gait exam (Neuro): Normal gait present Extrem General: Yes no clubbing, cyanosis or edema Results Reviewed Results Reviewed: Laboratory Tests 10/30/24 10/30/24 08:46 08:47 WBC 7.9 Hgb 15.4 Hct 45.6 Plt Count 267 Sodium 142 Potassium 3.7 Creatinine 0.90 Estimated GFR > 60 Fasting Glucose 94 Hemoglobin A1c % 5.5 AST 28 ALT 30 Triglycerides 137 Cholesterol 202 H LDL Cholesterol, Calc 143 H HDL Cholesterol 32 L PSA Screen 0.64 25-OH Vitamin D Total 46.4 TSH 2.17 Ur Specific [place] 1.025 Urine Protein Negative Urine Glucose (UA) Negative Urine Blood Trace H Urine Nitrite Negative Ur Leukocyte Esterase Negative Coding Level of Care Code Est Pt Prev Care 40-64y(55704) Diagnoses Annual physical exam Z00.00 Benign essential hypertension I10 Mixed hyperlipidemia E78.2 Palpitations R00.2 Vitamin D deficiency E55.9 Impaired fasting glucose R73.01 CLOVIS (obstructive sleep apnea) G47.33 Anxiety F41.9 Obesity (BMI 30-39.9) E66.9 Additional Codes PHQ-9 - 89580 - PHQ-9 Billing: Yes ([id number]) Assessment & Plan Assessment & Plan (1) Annual physical exam: Code(s): Z00.00 - Encounter for general adult medical examination without abnormal findings Category: Medical Plan: Results of his labs done yesterday reviewed and discussed with patient (2) Benign essential hypertension: Code(s): I10 - Essential (primary) hypertension Category: Medical Plan: Reinforced low sodium diet - goal is systolic BP of 120 mm or less Continue Enalapril 10 mg BID Patient is reminded to continue monitoring his blood pressure regularly (3) Mixed hyperlipidemia: Code(s): E78.2 - Mixed hyperlipidemia Category: Medical Plan: Have cautioned patient that his cholesterol levels are still elevated and have increased slightly from previous, with his LDL cholesterol now at 143 mg/dl Reinforced low cholesterol diet Patient would like to continue working on his diet and hold off on starting cholesterol Rx at this time Will recheck his labs and fasting lipids in 6 months for follow up (4) Palpitations: Code(s): R00.2 - Palpitations Category: Medical Plan: EKG done back in August 2023 came out normal - NSR with no acute ST-T wave changes Echocardiogram done in August 2023 also came out completely normal Holter monitor (7-days) done revealed sinus rhythm as the underlying rhythm, with average ventricular rate of 68 bpm and ranging from 44 to 132 bpm. There is rare supraventricular ectopy noted with minimal burden and with no significant pauses or AV blocks Patient states that he has been feeling well and has been mostly asymptomatic with almost no recurrence of his symptoms (palpitations) over the past few months No other interventions or Rx is indicated or recommended at this time (5) Vitamin D deficiency: Code(s): E55.9 - Vitamin D deficiency, unspecified Category: Medical Plan: Continue Vitamin D3 2000 units QD (6) Impaired fasting glucose: Code(s): R73.01 - Impaired fasting glucose Category: Medical Plan: His FBS was normal at 94 mg/dl and HgbA1c was normal at 5.5% on his labs done yesterday Reinforced low calorie/low carb diet, exercise as tolerated (7) CLOVIS (obstructive sleep apnea): Code(s): G47.33 - Obstructive sleep apnea (adult) (pediatric) Category: Medical Plan: Continue using his CPAP device when sleeping at night Patient states that he has been using his CPAP regularly for a while now - notes (+) improvement in his fatigue and daytime somnolence with Tx Follow up with Sleep Medicine as scheduled (8) Anxiety: Code(s): F41.9 - Anxiety disorder, unspecified Category: Medical Plan: Patient states that his anxiety symptoms have been well-controlled since he was started on Mirtazapine a few months ago Continue Mirtazapine 7.5 mg Q HS (9) Obesity (BMI 30-39.9): Code(s): E66.9 - Obesity, unspecified Category: Medical Plan: Reinforced diet/exercise as tolerated/lose weight Plan Follow up in 6 months Orders: Orders Comprehensive Bernie. Panel Fast 6 Months E78.00 - Pure hypercholesterolemia, unspecified Lipid Panel 6 Months E78.00 - Pure hypercholesterolemia, unspecified
[2024-10-31 12:52] VITALS: BP 130/60; PULSE 71; O2SAT 97; BMI 33.9
== END 2024-10-31 13:17 | disposition home or self-care (01) ==
PROVIDERS: PCP Internal Medicine; Visit Provider Internal Medicine
DX: Z00.00 Encounter for general adult medical examination without abnormal findings (principal); I10 Essential (primary) hypertension; Z68.33 Body mass index [BMI] 33.0-33.9, adult; E66.9 Obesity, unspecified; E78.2 Mixed hyperlipidemia; R00.2 Palpitations; E55.9 Vitamin D deficiency, unspecified; R73.01 Impaired fasting glucose; G47.33 Obstructive sleep apnea (adult) (pediatric); F41.9 Anxiety disorder, unspecified

== ENCOUNTER → 2024-10-31 12:24 | Outpatient (BNVA) | payer OTHER, SELFPAY | PROVIDERS: PCP Internal Medicine; Visit Provider Internal Medicine | DX: Z00.00 Encounter for general adult medical examination without abnormal findings (principal); I10 Essential (primary) hypertension; E78.2 Mixed hyperlipidemia; R00.2 Palpitations; E55.9 Vitamin D deficiency, unspecified; R73.01 Impaired fasting glucose; G47.33 Obstructive sleep apnea (adult) (pediatric); F41.9 Anxiety disorder, unspecified; E66.9 Obesity, unspecified; Z68.33 Body mass index [BMI] 33.0-33.9, adult; Z79.899 Other long term (current) drug therapy; Z99.89 Dependence on other enabling machines and devices | CPT/HCPCS: 96127 ==

== ENCOUNTER 2025-07-16 08:43 | Outpatient (REF) | payer OTHER, SELFPAY ==
--- OUTSIDE RECORDS SUMMARY | 2025-07-16 09:48 | XMS_ITS | Clinical Summary ---
Author Organization [facility] Address [address] [place] [id number] Care Team Providers Care Colored Liquid Plastic Applier Name Role Phone Pcp, No Primary Care Provider Unavailabl e Allergies No known active allergies Medications enalapril (VASOTEC) 5 MG tablet 03/20/2024 Active ondansetron (ZOFRAN) 8 MG tabletIndication s:Nausea and vomiting, unspecified vomiting type Take 1 tablet (8 mg total) by mouth 3 times daily (every 8 hours) as needed for nausea or vomiting. 15 tablet 12/05/2024 Active dicyclomine (BENTYL) 20 MG tabletIndication s:Diarrhea, unspecified type Take 1 tablet (20 mg total) by mouth 4 (four) times a day. 20 tablet 12/05/2024 Active Active Problems No known active problems Immunizations Immunization Administration Dates Next Due Tdap 03/20/2024 Social History Tobacco Use Types Packs/Day Years Used Date Smoking Tobacco: Never Assessed Sex and Gender Information Value Date Recorded Sex Assigned at Not on file Legal Sex Male 6:21 PM EDT Gender Identity Not on file Sexual Orientation Not on file Last Filed Vital Signs Vital Sign Reading Time Taken Comments Blood Pressure 122/79 12/05/2024 11:01 AM EST Pulse 93 12/05/2024 11:01 AM EST Temperature 37.8 C (100 F) 12/05/2024 11:01 AM EST Respiratory Rate 18 12/05/2024 11:01 AM EST Oxygen Saturation 97% 12/05/2024 11:01 AM EST Inhaled Oxygen Concentration - - Weight - - Height - - Body Mass Index - - Plan of Treatment Health Maintenance Due Date Last Done Comments Hepatitis C Virus Screening 1982 HIV Screening 1995 Hepatitis B Vaccines (1 of 3 - 19+ 3-dose series) 2001 HPV Vaccines (1 - 3-dose SCD M series) 2009 COVID-19 Vaccine (2 - 2023-2 5 season) 2024 11/11/2021 Influenza Vaccine 06/08/2025 DTaP/Tdap/Td Vaccines (2 - T d or Tdap) 03/20/2034 03/20/2024 Pneumococcal Vaccine: Pediat gibson (0-5 Years) and At-Risk Patients (6 to 49 Years) Aged Out No longer eligible b ased on patient's age to complete this topic Insurance [facility] Care Teams Colored Liquid Plastic Applier Relationship Specialty Start Date End Date Pcp, No PCP - General General Medicine 03/05/24
--- OUTSIDE RECORDS SUMMARY | 2025-07-16 09:48 | XMS_ITS ---
Author Name [facility] Organization Unknown History of Medication Use Medication Directions Dispensed Refills Start Date End Date Stat us dicyclomine (BENTYL) 20 MG tablet Take 1 tablet (20 mg total) by mouth 4 (four) times a day. 12/05/2024 active ondansetron (ZOFRAN) 8 MG tablet Take 1 tablet (8 mg total) by mouth 3 times daily (every 8 hours) as needed for nausea or vomiting. 12/05/2024 active enalapril (VASOTEC) 5 MG tablet 03/20/2024 active Problems Problem Status Onset Date Problem Type Date of Resoluti on Source Nausea and vomiting, unspecified vomiting type active EncounterDiagnosisAct CCT Generalized body aches active EncounterDiagnosisAct CCT Diarrhea, unspecified type active EncounterDiagnosisAct HH CCT Immunizations Vaccine Date Source Lot Number Status Tdap 03/20/2024 CCT [id number] completed Encounters Encounter Type Encounter Reason Primary Diagnosis Location Date Ambulatory Nausea with vomiting, unspecified Nausea with vomiting, unspecified [facility] 12/05/2024 Ambulatory [facility] 03/20/2024 Care Team Organization Name Specialty Phone Email Start Date End Da te [facility] 03/21/2025 [facility] NO PCP Primary Care 12/05/2024 [facility] 03/21/2024 01/24/2025 [facility] 03/20/2024
--- OUTSIDE RECORDS SUMMARY | 2025-07-16 09:48 | XMS_ITS | Encounter Summary ---
Author Organization [facility] Address [address] [place] [id number] Care Team Providers Care Steam And Power Supervisor Name Role Phone Pcp, No Primary Care Provider Unavailabl e Encounter Details Date Type Department Care Team (Late st Contact Info) Description 03/23/2024 Telephone [facility] [address] [place] [address] Ten Shea PA [address] [place] [address] Social History Tobacco Use Types Packs/Day Years Used Date Smoking Tobacco: Never Assessed Sex and Gender Information Value Date Recorded Sex Assigned at Not on file Legal Sex Male 6:21 PM EDT Gender Identity Not on file Sexual Orientation Not on file documented as of this encounter Plan of Treatment Not on file documented as of this encounter Visit Diagnoses Not on filedocumented in this encounter Care Teams Steam And Power Supervisor Relationship Specialty Start Date End Date Pcp, No PCP - General General Medicine 03/05/24 documented as of this encounter
[2025-07-16 09:56] LABS: Alanine Aminotransferase 42 U/L (0-40); Albumin Level 4.4 g/dL (3.5-5.0); Alkaline Phosphatase 92 U/L (39-117); Anion Gap 12 (12-20); Aspartate Amino Transferase 32 U/L (5-37); Blood Urea Nitrogen 16 mg/dL (9-16); Calcium 9.1 mg/dL (8.4-10.2); Carbon Dioxide 32 mmol/L (22-29); Chloride 104 mmol/L (96-108); Cholesterol 212 mg/dL (<200); Estimated Glomerular Filt Rate > 60; HDL Cholesterol 31 mg/dL (>40); Potassium 4.0 mmol/L (3.3-5.1); Sodium 144 mmol/L (135-145); Total Protein 7.4 g/dL (6.5-8.0); Triglycerides 209 mg/dL (<150)
== END 2025-07-16 08:44 | disposition home or self-care (01) ==
LOC: HO.LAB 08:43
PROVIDERS: PCP Internal Medicine; Visit Provider Internal Medicine
DX: I10 Essential (primary) hypertension (principal); E78.2 Mixed hyperlipidemia; R00.2 Palpitations; E55.9 Vitamin D deficiency, unspecified; R73.01 Impaired fasting glucose; G47.33 Obstructive sleep apnea (adult) (pediatric); F41.9 Anxiety disorder, unspecified; E66.9 Obesity, unspecified; R74.01 Elevation of levels of liver transaminase levels; Z68.34 Body mass index [BMI] 34.0-34.9, adult
CPT/HCPCS: 36415; 80053; 80061; 96127

== ENCOUNTER 2025-07-16 14:54 | Outpatient (AMB) | payer OTHER, SELFPAY ==
--- NOTE | 2025-07-16 15:07 | MHC.PC.OV ---
Vital Signs 07/16/25 15:11 Height 5 ft 9 in Weight 234 lb 4 oz BMI 34.6 BP 138/84 Blood Pressure Location Lt brachial Position Sitting Pulse 75 Pulse Source Pulse Oximeter Temp 97.5 F Temp Source Temporal Artery Scan Pulse Oximetry (%) 98 Oxygen Delivery Method Room Air Intake Visit Reasons: hyperlipidemia, HTN, CLOVIS Intake Note: Patient is here to follow up on HTN, CLOVIS, HLD. 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 Accompanied by: Children Allergies No Known Drug Allergies Allergy (Unknown, Verified 07/16/25 15:30) Unknown Medication List - Last Reconciled 07/16/25 by SB Waters cholecalciferol (vitamin D3) 50 mcg PO DAILY 90 days CPAP (CPAP Machine/Device) As directed-Pressure settings 6-16CM enalapril maleate 10 mg PO BID 90 days mirtazapine 7.5 mg PO BEDTIME 30 days multivitamin 1 tab PO DAILY Tobacco use date assessed: 07/16/25 Dental Screening Dental Screen Date: 07/16/25 Did you have a dental visit in the last 12 months?: No Did you have a dental problem in the last 6 months where you did not have access to dental care?: No Was dental information given to patient?: No HPI hyperlipidemia, HTN, CLOVIS HPI Details The patient is a 45-year-old male presenting with elevated blood pressure and cholesterol management concerns. He reports occasional episodes of elevated blood pressure, though he does not experience any physical symptoms associated with these episodes. His cholesterol levels have been persistently high, with triglycerides noted to increase, possibly due to dietary habits involving sugary drinks and processed foods. The patient has a history of elevated liver enzymes, which was noted during recent lab work. He is not currently on any medication for cholesterol management but has been advised to consider omega-3 supplements to improve his lipid profile. The patient also reports a history of sleep apnea for which he uses a CPAP machine, and he finds it beneficial for his sleep quality. He experiences anxiety occasionally and has been prescribed mirtazapine, which he takes as needed, primarily for sleep disturbances. [facility] Medical History Mixed hyperlipidemia Impaired fasting glucose Vitamin D deficiency Pure hypercholesterolemia Obesity (BMI 30-39.9) Benign essential hypertension Surgical History No pertinent past surgical history Family History Mother High blood pressure Father No problems noted. 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 1. Little interest or pleasure in doing things: not at all 2. Feeling down, depressed, or hopeless: not at all 3. Trouble falling or staying asleep, or sleeping too much: not at all 4. Feeling tired or having little energy: not at all 5. Poor appetite or overeating: not at all 6. Feeling bad about yourself - or that you are a failure or have let yourself or your family down: not at all 7. Trouble concentrating on things, such as reading the newspaper or watching television: not at all 8. Moving or speaking so slowly that other people could have noticed. Or the opposite - being so fidgety or restless that you have been moving around a lot more than usual: not at all 9. Thoughts that you would be better off or of hurting yourself in some way: not at all Total score: 0 Depression Screening Interpretation: Negative Depression Screening Done: Yes Source: Developed by Drs. Matthieu Parnell, Neris Vance, Kenn Hopper and colleagues, with an educational whit from [employer]. Thrive Questionnaire Date Thrive assessed: 07/16/25 I am a: Patient What is your living situation today?: I have a steady place to live Within the past 12 months, did the food you bought not last and you didn't have the money to get more?: Never true Within the past 12 months, did you worry whether your food would run out before you got money to buy more?: Never true Do you have trouble paying for medicines?: No Do you have trouble getting transportation to medical appointments?: No Do you have trouble paying your heating and electricity bill?: No Do you have trouble taking care of your child, family member or friend?: No Do you have trouble with day-to-day activities such as bathing, preparing meals, shopping, managing finances, etc.?: No Are you currently unemployed and looking for a job?: No Are you interested in more education?: No Please select the resources that you would like help with: None Currently or been in a relationship where the following occur: No concerns reported THRIVE Score: 0 AUDIT C Alcohol Use Questionnaire (AUDIT-C) 1. How often do you have a drink containing alcohol?: Monthly or less 2. How many drinks containing alcohol do you have on a typical day when you are drinking?: 1 or 2 3. How often do you have six or more drinks on one occasion?: Never Total Score: 1 STEPH-7 AMB Questionnaire STEPH-7 Date STEPH - 7 assessed: 07/16/25 Feeling nervous, anxious, or on edge: 1 = Several days Not being able to stop or control worryin = Not at all Worrying too much about different things: 1 = Several days Trouble relaxin = Several days Being so restless that it is hard to sit still: 0 = Not at all Becoming easily annoyed or irritable: 1 = Several days Feeling afraid as if something awful might happen: 0 = Not at all Total STEPH-7 score (0-4 normal; 5-9 mild; 10-14 moderate; 15-21 severe): 4 Source: Developed by Drs. Matthieu Parnell, Neris Vance, Kenn Hopper and colleagues, with an educational whit from [employer]. Review of Systems Const Denies body aches, Denies chills, Denies fever(s), Denies headache(s) and Denies poor appetite Eyes Reports no additional complaints ENT Denies dysphagia, Denies dizziness, Denies headache(s) and Denies odynophagia Card Denies chest pain, Denies syncope, Denies edema, Denies irregular heart rhythm, Denies lightheadedness and Denies dyspnea Resp Denies cough and Denies dyspnea GI Denies abdominal pain, Denies constipation, Denies dysphagia, Denies diarrhea, Denies nausea, Denies odynophagia and Denies vomiting Reports no additional complaints Musc Reports no additional complaints and Denies abnormal gait Skin/Breast Reports system reviewed and no additional complaints, except as documented Neuro Denies Abnormal speech present, Denies abnormal gait, Denies dizziness, Denies syncope and Denies headache(s) Psych Reports anxiety Physical exam (Primary Care) Vital Signs: Last Vital Signs Temp 97.5 F 07/16/25 15:11 Pulse 75 07/16/25 15:11 BP 138/84 07/16/25 15:11 Pulse Ox 98 07/16/25 15:11 Oxygen Delivery Method Room Air 07/16/25 15:11 BMI result Body Mass Index 34.6 Tobacco/Smoking Status: Tobacco use Status Tobacco use date assessed 07/16/25 07/16/25 15:16 Patient Tobacco Use Status Never used Tobacco 07/16/25 15:09 e-Cigarette/Vaping Use Never Used 07/16/25 15:09 PHQ-9: PHQ-9 Score PHQ-9: Total score 0 07/16/25 15:36 Depression Screening Interpretation: Negative Thrive Assessment: Date of Thrive Assessment Date Thrive assessed 07/16/25 07/16/25 15:09 Currently or been in a relationship where the following occur: No concerns reported Const General: healthy appearing, no acute distress, alert and awake Nutritional Appearance: well nourished and not underweight Orientation/consciousness: oriented to person, oriented to place and oriented to time HENMT Ears: TM's normal bilaterally General nose exam: Normal nasal mucous membranes and turbinates present Eyes Conjunctivae: conjunctivae normal Sclerae: sclerae normal Pupils: Equal, round and reactive pupils present Neck Neck: Yes no lymphadenopathy and Yes no JVD Thyroid: Thyroid normal Carotids: no bruits Resp Effort & Inspection: normal respiratory effort and not tachypneic Auscultation: no crackles, no rales, no rhonchi and no wheezes Cardio Rate: regular rate Rhythm: regular rhythm Heart sounds: no murmurs and normal S1 and S2 GI Palpation (GI): Soft to palpation, nontender, no hepatomegaly and no splenomegaly Auscultation: normal bowel sounds Skin General skin exam: no rashes or lesions noted and dry skin Neuro General: oriented to person, oriented to place and oriented to time Cranial nerves: Yes Equal, round and reactive pupils present Speech: No Abnormal speech present Gait exam (Neuro): Normal gait present Motor exam (neuro): no tremor noted Extrem Right upper extremity: full ROM Left upper extremity: full ROM Right lower extremity: full ROM; no edema Left lower extremity: full ROM; no edema Psych Mental Status: mental status grossly normal Speech and movement: Normal speech and movement present Affect: normal affect Attitude: cooperative Thought process: Normal thought process present Results Reviewed Results Reviewed: Laboratory Tests 07/16/25 08:54 Sodium 144 Potassium 4.0 Chloride 104 Carbon Dioxide 32 H Anion Gap 12 BUN 16 Creatinine 0.88 Estimated GFR > 60 Fasting Glucose 98 Calcium 9.1 Total Bilirubin 0.4 AST 32 ALT 42 H Alkaline Phosphatase 92 Total Protein 7.4 Albumin 4.4 Triglycerides 209 H Cholesterol 212 H LDL Cholesterol, Calc 140 H HDL Cholesterol 31 L Coding Level of Care Code Est Pt Level 4 (30221) Diagnoses Benign essential hypertension I10 Mixed hyperlipidemia E78.2 Palpitations R00.2 Vitamin D deficiency E55.9 Impaired fasting glucose R73.01 CLOVIS (obstructive sleep apnea) G47.33 Anxiety F41.9 Obesity (BMI 30-39.9) E66.9 Elevated ALT measurement R74.01 Time Spent (min) 39 Assessment & Plan Assessment & Plan (1) Benign essential hypertension: Code(s): I10 - Essential (primary) hypertension Category: Medical Plan: Blood pressure 138/84-patient is anxious in office Reinforced low sodium diet - goal is systolic BP of 120 mm or less Continue Enalapril 10 mg BID Patient is reminded to continue monitoring his blood pressure regularly (2) Mixed hyperlipidemia: Code(s): E78.2 - Mixed hyperlipidemia Category: Medical Plan: Triglycerides in 209, total cholesterol 212, LDL 140, HDL 31 The patient has elevated cholesterol levels, with triglycerides noted to increase due to dietary habits. [place]-3 supplements and dietary modifications have been recommended, and a low-dose rosuvastatin will be initiated. (3) Palpitations: Code(s): R00.2 - Palpitations Category: Medical Plan: EKG done back in August 2023 came out normal - NSR with no acute ST-T wave changes Echocardiogram done in August 2023 also came out completely normal Holter monitor (7-days) done revealed sinus rhythm as the underlying rhythm, with average ventricular rate of 68 bpm and ranging from 44 to 132 bpm. There is rare supraventricular ectopy noted with minimal burden and with no significant pauses or AV blocks Patient states that he has been feeling well and has been mostly asymptomatic with almost no recurrence of his symptoms (palpitations) over the past few months No other interventions or Rx is indicated or recommended at this time (4) Vitamin D deficiency: Code(s): E55.9 - Vitamin D deficiency, unspecified Category: Medical Plan: Continue Vitamin D3 2000 units QD (5) Impaired fasting glucose: Code(s): R73.01 - Impaired fasting glucose Category: Medical Plan: His FBS was normal at 98 mg/dl and HgbA1c was normal at 5.5% on previous lab Reinforced low calorie/low carb diet, exercise as tolerated (6) CLOVIS (obstructive sleep apnea): Code(s): G47.33 - Obstructive sleep apnea (adult) (pediatric) Category: Medical Plan: Continue using his CPAP device when sleeping at night Patient states that he has been using his CPAP regularly for a while now - notes (+) improvement in his fatigue and daytime somnolence with Tx Follow up with Sleep Medicine as scheduled (7) Anxiety: Code(s): F41.9 - Anxiety disorder, unspecified Category: Medical Plan: Patient states that his anxiety symptoms have been well-controlled since he was started on Mirtazapine a few months ago Continue Mirtazapine 7.5 mg Q HS (8) Obesity (BMI 30-39.9): Code(s): E66.9 - Obesity, unspecified Category: Medical Plan: Reinforced diet/exercise as tolerated/lose weight (9) Elevated ALT measurement: Code(s): R74.01 - Elevation of levels of liver transaminase levels Category: Medical Plan: The patient has slightly elevated liver enzymes, which will be monitored with follow-up lab work. Orders: Orders Complete Blood Count Auto Diff 3 Months E55.9 - Vitamin D deficiency, unspecified, E66.9 - Obesity, unspecified, E78.00 - Pure hypercholesterolemia, unspecified, F41.9 - Anxiety disorder, unspecified, G47.33 - Obstructive sleep apnea (adult) (pediatric), I10 - Essential (primary) hypertension, R00.2 - Palpitations, R73.01 - Impaired fasting glucose UA CC w/rflx Micro + Cult 3 Months E55.9 - Vitamin D deficiency, unspecified, E66.9 - Obesity, unspecified, E78.00 - Pure hypercholesterolemia, unspecified, F41.9 - Anxiety disorder, unspecified, G47.33 - Obstructive sleep apnea (adult) (pediatric), I10 - Essential (primary) hypertension, R00.2 - Palpitations, R73.01 - Impaired fasting glucose TSH reflex Free T4 3 Months E55.9 - Vitamin D deficiency, unspecified, E66.9 - Obesity, unspecified, E78.00 - Pure hypercholesterolemia, unspecified, F41.9 - Anxiety disorder, unspecified, G47.33 - Obstructive sleep apnea (adult) (pediatric), I10 - Essential (primary) hypertension, R00.2 - Palpitations, R73.01 - Impaired fasting glucose Comprehensive [place]. Panel Fast 3 Months E55.9 - Vitamin D deficiency, unspecified, E66.9 - Obesity, unspecified, E78.00 - Pure hypercholesterolemia, unspecified, F41.9 - Anxiety disorder, unspecified, G47.33 - Obstructive sleep apnea (adult) (pediatric), I10 - Essential (primary) hypertension, R00.2 - Palpitations, R73.01 - Impaired fasting glucose Lipid Panel 3 Months E55.9 - Vitamin D deficiency, unspecified, E66.9 - Obesity, unspecified, E78.00 - Pure hypercholesterolemia, unspecified, F41.9 - Anxiety disorder, unspecified, G47.33 - Obstructive sleep apnea (adult) (pediatric), I10 - Essential (primary) hypertension, R00.2 - Palpitations, R73.01 - Impaired fasting glucose Vitamin D 25-OH Total 3 Months E55.9 - Vitamin D deficiency, unspecified, E66.9 - Obesity, unspecified, E78.00 - Pure hypercholesterolemia, unspecified, F41.9 - Anxiety disorder, unspecified, G47.33 - Obstructive sleep apnea (adult) (pediatric), I10 - Essential (primary) hypertension, R00.2 - Palpitations, R73.01 - Impaired fasting glucose Hemoglobin A1c 3 Months E55.9 - Vitamin D deficiency, unspecified, E66.9 - Obesity, unspecified, E78.00 - Pure hypercholesterolemia, unspecified, F41.9 - Anxiety disorder, unspecified, G47.33 - Obstructive sleep apnea (adult) (pediatric), I10 - Essential (primary) hypertension, R00.2 - Palpitations, R73.01 - Impaired fasting glucose Medications: New rosuvastatin 5 mg PO DAILY 90 tabs 3RF
[2025-07-16 15:11] VITALS: BP 138/84; PULSE 75; TEMP 36.4; O2SAT 98; BMI 34.6
== END 2025-07-16 15:42 | disposition home or self-care (01) ==
LOC: HO.HMCH 14:55
PROVIDERS: PCP Internal Medicine
DX: I10 Essential (primary) hypertension (principal); E78.2 Mixed hyperlipidemia; E66.9 Obesity, unspecified; Z68.34 Body mass index [BMI] 34.0-34.9, adult; R00.2 Palpitations; E55.9 Vitamin D deficiency, unspecified; R73.01 Impaired fasting glucose; G47.33 Obstructive sleep apnea (adult) (pediatric); F41.9 Anxiety disorder, unspecified; R74.01 Elevation of levels of liver transaminase levels